=== PATIENT | male | born 1960 | race Caucasian/White ===

== ENCOUNTER 2017-02-14 21:05 | Inpatient (IN) | payer MEDICAID ==
[~2017-02-14] VITALS: Ht 195.6 cm; Wt 152.3 kg
[2017-02-14] MEDS ORDERED: NITROGLYCERIN 2% 1 GM OINT PKT TD STA (21:14)
[2017-02-14 21:26] LABS: ADD SCAN DIFF NO
[2017-02-14 21:29] LABS: ABNORMAL IP MESSAGE 1; BASOPHILS % 0.2 % (0.0-2.0); EOSINOPHILS # 0.1 10^3/ul (0.0-0.5); EOSINOPHILS % 1.4 % (0.0-7.0); HEMOGLOBIN 14.7 g/dl (14.0-18.0); LYMPHOCYTES % 22.3 % (15.0-51.0); MEAN CORPUSCULAR HEMOGLOBIN 30.6 pg (29.0-33.0); MEAN CORPUSCULAR HGB CONC 32.7 g/dl (32.0-37.0); MEAN CORPUSCULAR VOLUME 93.6 fl (82.0-101.0); MEAN PLATELET VOLUME 13.3 fl (7.4-10.4); MONOCYTE # 0.7 10^3/ul (0.3-0.9); MONOCYTES % 8.4 % (0.0-11.0); NEUTROPHILS % 67.4 % (39.0-77.0); PLATELET COUNT 159 10^3/UL (140-415); RED BLOOD COUNT 4.81 10^6/ul (4.70-6.10); RED CELL DISTRIBUTION WIDTH 12.8 % (11.5-14.5); WHITE BLOOD COUNT 8.8 10^3/ul (4.8-10.8)
[2017-02-14] MEDS ORDERED: FUROSEMIDE 40 MG INJ IV ONE (21:30)
[2017-02-14] MEDS ORDERED: ACETAMINOPHEN 500 MG TAB PO STA (21:32)
[2017-02-14 21:48] LABS: INR 1.1; PROTIME 14.2 Sec (12.2-14.2); PT RATIO 1.1
--- NOTE | 2017-02-14 21:48 | RADRPT ---
PROCEDURE: XR Chest. CLINICAL INDICATION: Chest pain. Shortness of breath TECHNIQUE: Portable AP semi erect view of the chest was obtained. COMPARISON: None. FINDINGS: The cardiomediastinal silhouette is enlarged. The lungs are clear. There is no evidence for pleura l effusion, pneumothorax or pulmonary vascular congestion. The osseous structures are intact with n o evidence for acute abnormality. RPTAT:HJJR IMPRESSION: Cardiac silhouette enlargement without evidence for acute intrathoracic pathology. Physician Bhupendra Date Time Electronically viewed and signed by Physician Bhupendra on 02/14/2017 21:47 JR/
[2017-02-14 21:49] LABS: PARTIAL THROMBOPLASTIN TIME 32.2 Sec (25.0-35.0)
[2017-02-14 21:51] LABS: ALBUMIN 3.6 g/dl (3.3-4.9); ALBUMIN/GLOBULIN RATIO 1.38; BILIRUBIN,INDIRECT 0.4 mg/dl (0-1.1); BILIRUBIN,TOTAL 0.4 mg/dl (0.2-1.3); CALCIUM 8.9 mg/dl (8.4-10.2); CREATININE 0.61 mg/dl (0.61-1.24); POTASSIUM 4.1 mmol/L (3.5-5.1); TOTAL PROTEIN 6.2 g/dl (6.1-8.1)
[2017-02-14] MEDS ORDERED: DILTIAZEM 25 MG INJ IV ONE (22:00)
[2017-02-14 22:02] LABS: TROPONIN-I 0.019 ng/ml (0.00-0.12)
--- NOTE | 2017-02-14 22:30 | ERA ---
ER Documentation Chief Complaint Date/Time DATE: 02/14/17 TIME: 21:10 Chief Complaint RA89 SOB,CP,hx pulm edema,88% on 2 lpm via [place] HPI 56-year-old male with history of diabetes, hypertension, hyperlipidemia and heart disease presents to the ED via rescue ambulance complaining of a 3 day history of worsening shortness of breath and several hour history of increasing , sharp and pressure-like nonradiating chest pain. Nausea with one episode of nonbloody nonbilious emesis but no diaphoresis. Received aspirin, sublingual nitroglycerin and nebulized albuterol in route with some relief.Also complaining of a several day history of subjective fevers but denies cough or sputum production. No abdominal pain, nausea, vomiting, diarrhea or constipation. Leg swelling but no pain. No dysuria, polyuria or flank pain. ROS All systems reviewed and are negative except as per history of present illness. Allergies Allergies: Coded Allergies: No Known Allergy (Unverified , 02/14/17) PMhx/Soc Reviewed in chart. As per HPI. Hx Cardiac Disorders: Yes (A. Fib, HTN) Hx Miscellaneous Medical Probl: Yes (DM) Hx Alcohol Use: No Hx Substance Use: No Hx Tobacco Use: No Smoking Status: Never smoker FmHx No stroke or cancer Physical Exam Vitals Vital Signs Date Time Temp Pulse Resp B/P Pulse Ox O2 Delivery O2 Flow Rate FiO2 02/14/17 22:28 103 13 133/78 92 Nasal Cannula 5.0 02/14/17 21:53 154 37 136/78 97 Nasal Cannula 5.0 02/14/17 21:17 Nasal Cannula 5 02/14/17 21:11 102.8 144 23 130/87 95 Physical Exam Const: Alert, moderate distress Head: Atraumatic Eyes: Normal Conjunctiva ENT: Normal External Ears, Nose and Mouth. Neck: Full range of motion. Nontender. Resp: Breath sounds diminished at the bases otherwise clear without rales, rhonchi or wheezes Cardio: Tachycardic, irregular rate and rhythm, no murmurs Abd: Soft, obese non tender, non distended. Normal bowel sounds Skin: No petechiae or rashes Back: No midline or flank tenderness Ext: 2+ pitting edema bilateral lower external Neur: Awake and alert. No focal deficit observed Psych: Normal Mood and Affect Result Diagram: 02/15/17 0554 02/15/17 0554 Results 24 hrs Laboratory Tests Test 02/14/17 21:15 02/14/17 22:00 White Blood Count 8.810^3/ul Red Blood Count 4.8110^6/ul Hemoglobin 14.7g/dl Hematocrit 45.0% Mean Corpuscular Volume 93.6fl Mean Corpuscular Hemoglobin 30.6pg Mean Corpuscular Hemoglobin Concent 32.7g/dl Red Cell Distribution Width 12.8% Platelet Count 57640^3/UL Mean Platelet Volume 13.3fl Neutrophils % 67.4% Lymphocytes % 22.3% Monocytes % 8.4% Eosinophils % 1.4% Basophils % 0.2% Nucleated Red Blood Cells % 0.0/100WBC Neutrophils # 6.010^3/ul Lymphocytes # 2.010^3/ul Monocytes # 0.710^3/ul Eosinophils # 0.110^3/ul Basophils # 0.010^3/ul Nucleated Red Blood Cells # 0.010^3/ul Prothrombin Time 14.2Sec Prothrombin Time Ratio 1.1 INR International Normalized Ratio 1.10 Activated Partial Thromboplast Time 32.2Sec Sodium Level 132mmol/L Potassium Level 4.1mmol/L Chloride Level 91mmol/L Carbon Dioxide Level 28mmol/L Anion Gap 17 Blood Urea Nitrogen 14mg/dl Creatinine 0.61mg/dl Glucose Level 370mg/dl Lactic Acid Level 1.3mmol/L Calcium Level 8.9mg/dl Magnesium Level 1.4mg/dl Total Bilirubin 0.4mg/dl Direct Bilirubin 0.00mg/dl Indirect Bilirubin 0.4mg/dl Aspartate Amino Transf (AST/SGOT) 54IU/L Alanine Aminotransferase (ALT/SGPT) 75IU/L Alkaline Phosphatase 145IU/L Troponin I 0.019ng/ml B-Type Natriuretic Peptide 1380PG/ML Total Protein 6.2g/dl Albumin 3.6g/dl Globulin 2.60g/dl Albumin/Globulin Ratio 1.38 Urine Color STRAW Urine Clarity CLEAR Urine pH 6.0 Urine Specific [place] 1.005 Urine Ketones NEGATIVEmg/dL Urine Nitrite NEGATIVEmg/dL Urine Bilirubin NEGATIVEmg/dL Urine Urobilinogen NEGATIVEmg/dL Urine Leukocyte Esterase NEGATIVELeu/ul Urine Hemoglobin NEGATIVEmg/dL Urine Glucose 3+mg/dL Urine Total Protein NEGATIVEmg/dl Current Medications Medications (Trade) Dose Ordered Sig/Steven Route PRN Reason Start Time Stop Time Status Last Admin Dose Admin Nitroglycerin (Nitroglycerin 2% Oint) 1 inch ONCE STAT TD 02/14/17 21:14 02/14/17 21:16 DC 02/14/17 21:23 Furosemide (Lasix) 40 mg ONCE ONCE IV 02/14/17 21:30 02/14/17 21:31 DC 02/14/17 21:27 Acetaminophen (Tylenol Tab) 1,000 mg ONCE STAT PO 02/14/17 21:32 02/14/17 21:33 DC 02/14/17 21:48 Diltiazem HCl (Cardizem Iv) 20 mg ONCE ONCE IV 02/14/17 22:00 02/14/17 22:03 DC 02/14/17 22:11 EKG: TIME: 21:30. Atrial fibrillation with RVR. Occasional premature aberrantly conducted complexes. Right bundle branch block. No acute ST segment elevation or depression. EP Interpretation: Abnormal EKG. IMAGING: PROCEDURE: XR Chest. CLINICAL INDICATION: Chest pain. Shortness of breath TECHNIQUE: Portable AP semi erect view of the chest was obtained. COMPARISON: None. FINDINGS: The cardiomediastinal silhouette is enlarged. The lungs are clear. There is no evidence for pleural effusion, pneumothorax or pulmonary vascular congestion. The osseous structures are intact with no evidence for acute abnormality. RPTAT:HJJR IMPRESSION: Cardiac silhouette enlargement without evidence for acute intrathoracic pathology. Physician Bhupendra Date Time Electronically viewed and signed by Physician Bhupendra on 02/14/2017 21:47 JR/ Procedures/MDM DOCUMENTS REVIEWED: ED nurse, no prior REEXAMINATION/REEVALUATION: Time:22:15. Post Cardizem still in atrial fibrillation with ventricular rate of 98. Chest pain decreased. [employer] DECISION MAKIN-year-old male with history of diabetes, hypertension , hyperlipidemia and heart disease presents to the ED via rescue ambulance complaining of a 3 day history of worsening shortness of breath and several hour history of increasing, sharp and pressure-like nonradiating chest pain. Patient presents with atrial fibrillation with rapid ventricular response rate control achieved with diltiazem bolus and continuous infusion. Chest pain but no acute ischemic EKG changes or elevated troponin. Acute febrile illness with multiple SIRS criteria but no source of infection identified. Chest x-ray is negative for effusions or infiltrates. Abdominal exam is benign without rebound , guarding or signs of peritonitis. No elevated lactate or criteria for severe sepsis or septic shock. Hyperglycemia but no DKA or HONK. Patient will be admitted to telemetry for further evaluation and management. Counseled patient regarding diagnosis, diagnostic results and plan for admission. Critical Care Note: Treatments/Evaluations: Close monitoring and treatment of unstable vital signs, cardiorespiratory, and neurologic status, while maintaining tight balance of fluid, respiratory, and cardiac interventions. This time includes discussing the case with the patient and the patient's family. This time does not include all procedures stated elsewhere in this record. This time also includes reviewing old records, labs and radiological studies. This time includes examining and re-examining the patient. Additionally, this time also includes arranging care with admitting and consulting physicians. Total critical care time not including other separately reportable procedures: 35 minutes. CALLS/CONSULTS: Time 22:35, Dr. Mayen, Recommends admission to telemetry. PATIENT CARE TRANSITIONED: Time: 22:35 Dr. Mayen. Departure Diagnosis: Primary Impression: Acute chest pain Additional Impressions: Atrial fibrillation with rapid ventricular response Fever Qualified Code: R50.9 - Fever, unspecified fever cause Diabetes mellitus type 2 in obese Hypertension Qualified Code: I10 - Essential hypertension Condition: Serious POLO HASKINS MD Feb 14, 2017 22:30
[2017-02-14 22:52] LABS: ADD UMIC NO; UR ASCORBIC ACID NEGATIVE (NEGATIVE); UR BILIRUBIN (Dip) NEGATIVE (NEGATIVE); UR BLOOD (Dip) NEGATIVE (NEGATIVE); UR CLARITY CLEAR (CLEAR); UR COLOR STRAW (YELLOW); UR GLUCOSE (Dip) 3+ mg/dL (NEGATIVE); UR KETONES (Dip) NEGATIVE (NEGATIVE); UR LEUKOCYTE ESTERASE (Dip) NEGATIVE Leu/ul (NEGATIVE); UR NITRITE (Dip) NEGATIVE (NEGATIVE); UR SPECIFIC GRAVITY (Dip) 1.005 (1.003-1.030); UR TOTAL PROTEIN (Dip) NEGATIVE (NEGATIVE); UR UROBILINOGEN (Dip) NEGATIVE (NEGATIVE)
[2017-02-14] MEDS ORDERED: ONDANSETRON 4 MG INJ IV PRN (23:00)
[2017-02-14] MEDS ORDERED: ACETAMINOPHEN 325 MG TAB PO PRN (23:00)
[2017-02-14] MEDS ORDERED: IOHEXOL 100 ML ONE (23:03)
[2017-02-14] MEDS ORDERED: IOHEXOL 350MG/ML 50 ML BTL ONE (23:03)
[2017-02-14] MEDS ORDERED: SOD CHLORIDE 0.9% 100 ML ONE (23:03)
[2017-02-14] MEDS: DILTIAZEM-D5W 125MG/125ML DRIP 125 ML IV SCH (23:04)
[2017-02-15] VITALS (10 sets, daily range): BP systolic 115–160; BP diastolic 55–82; PULSE 96–117; RESP 18–20; Ht 195.6 cm; Wt 152.3 kg
--- NOTE | 2017-02-15 00:20 | RADRPT ---
PROCEDURE: CT angiogram of the chest with contrast. CLINICAL INDICATION: Chest pain and shortness of breath. TECHNIQUE: CT angiogram of the chest was obtained using a multi-detector high-resolution CT. Con tiguous axial images were obtained during the dynamic injection of 140 cc of Omnipaque 350 intraveno us contrast. Coronal and sagittal reformatted images were obtained. 3-D reformatted images were al so obtained. Images were reviewed on a PACS workstation. One or more of the following dose reduction techniques were used: - Automated exposure control. - Adjustment of the mA and/or kV according to patient size. - Use of iterative reconstruction technique. Exam CTD/vol = 24.47 mGy. Total exam DLP = 1032.24 mGy-cm. COMPARISON: None. FINDINGS: The main pulmonary artery followed to the segmental divisions are well opacified. There is no filli ng defect or evidence of pulmonary embolism. The heart is moderately enlarged with a small to moder ate pericardial effusion. The aorta is of normal course and caliber without evidence of aneurysm or dissection. There is no evidence of chest wall mass. The visualized thyroid is unremarkable. There are no enla rged axillary lymph nodes. There are no enlarged mediastinal or hilar lymph nodes by CT criteria. T here is bilateral peribronchial thickening. There are mild scattered air space opacities within the right upper and lower lobes. There is no pleural effusion. The central tracheobronchial tree is w ithin normal limits. Limited evaluation of the upper abdomen demonstrates a large ventral hernia containing loops of ventura l. IMPRESSION: No evidence of pulmonary embolism or aortic dissection. Moderate cardiomegaly with small to moderate pericardial effusion. Bilateral peribronchial thickening with mild scattered air space opacities within the right upper an d lower lobes. Large ventral abdominal wall hernia containing multiple loops of bowel. Please refer to CT abdomen and pelvis done same day for further details. .Lele Zuniga MD, MD Date Time Electronically viewed and signed by .Lele Zuniga MD, MD on 02/15/2017 00:19 .T/
--- NOTE | 2017-02-15 00:26 | RADRPT ---
PROCEDURE: CT abdomen and pelvis without intravenous contrast. CLINICAL INDICATION: Pain. TECHNIQUE: CT of the abdomen/pelvis was performed utilizing axial images with reconstructions in s agittal and coronal planes. The administered radiation dose is CTDI 29 mGy, DLP 1823 mGy-cm. COMPARISON: No pertinent prior examinations were submitted for comparison. FINDINGS: Visualized Chest: Some ground-glass nodular opacities are noted within the lung bases in a peribronc hial distribution. There is moderate cardiomegaly with small to moderate pericardial effusion. José Miguel e coronary artery calcifications are noted. Abdomen: The examination is limited by body habitus. Parts of the anterior abdomen are not included in the f ield of view. The spleen, pancreas, gallbladder,and adrenal glands are unremarkable. The liver is diffusely dec reased in attenuation, compatible with hepatic steatosis. The kidneys are without hydronephrosis. No definite urinary calculi are seen. There is a large ventral abdominal hernia which contains most of the small bowel and parts of the la rge bowel. The anterior aspect of the hernia is not visualized. There is no evidence of bowel obst ruction. There is no evidence of intra-abdominal adenopathy or free fluid. Pelvis: There is no evidence of pelvic adenopathy or free fluid. The prostate and bladder are unremarkable. Osseous structures: Unremarkable. IMPRESSION: Patchy peribronchial nodular opacities in the lung bases likely due to pneumonia. Moderate cardiomegaly with small to moderate pericardial effusion. Hepatic steatosis. Large ventral abdominal hernia containing most of the bowel. No evidence of bowel obstruction. RPTAT: HIKT .Curly Huff MD, MD Date Time Electronically viewed and signed by .Curly Huff MD, on 02/15/2017 00:26 .T/
[2017-02-15] MEDS ORDERED: NITROGLYCERIN (SL) 0.4 MG TAB SL PRN (01:00)
[2017-02-15] MEDS ORDERED: DOCUSATE SODIUM 100 MG CAP PO PRN (01:00)
[2017-02-15] MEDS ORDERED: ONDANSETRON 4 MG INJ IV PRN (01:00)
[2017-02-15] MEDS ORDERED: BISACODYL (EC) 5 MG TAB PO PRN (01:00)
[2017-02-15] MEDS ORDERED: ACETAMINOPHEN 325 MG TAB PO PRN (01:00)
[2017-02-15] MEDS ORDERED: MAGNESIUM SULFATE 2 GM/50 ML 50 ML IVPB ONE ×2 (01:00→04:38)
[2017-02-15] MEDS ORDERED: NACL 0.9% 3 ML SYG IV SCH (01:00)
--- NOTE | 2017-02-15 01:06 | HP ---
Date/Time of Note Date/Time of Note DATE: 02/15/17 TIME: 00:41 Assessment/Plan VTE Prophylaxis VTE Prophylaxis Intervention: SCD's Lines/Catheters IV [facility] Saline Lock Assessment/Plan Chief Complaint/Hosp Course This is a 56-year-old male being admitted to the telemetry floor for: #1 chest pain: ACS versus A. fib with RVR versus pneumonia. Patient has a significant past medical history we will trend cardiac markers. Will check a 2D echo. As needed nitro. #2 A. fib with RVR: Currently rate controlled on Cardizem drip. Patient not on any anticoagulation at home except for aspirin. Patient states that he was told in the past that he should not be taking anticoagulation secondary to his hemorrhage that resulted in him needing abdominal surgery. Will defer anticoagulation to cardiology. #3 Fever: Patient came in with normal white blood cell count. However his fever and cough do not fit the clinical picture though his chest x-ray is normal and I have suspicion for underlying pneumonia therefore I will order a CT of the chest to further evaluate at the current time I will order a CT of the chest to further evaluate. #4 diabetes mellitus: We will check a hemoglobin A1c level. Put patient on insulin sliding scale. #5 hypertension: Patient currently does not recall any of his medications. We will start him on a low-dose JERRELL inhibitor at this time. #6 History of CHF: BNP of 1300 however his x-ray does not show any vascular congestion though he does have lower extremity edema, which also could be due to possibly underlying sleep apnea. The current time will order echocardiogram to evaluate and consult cardiology. #7 DVT and GI prophylaxis: SCDs, Protonix Further treatment strategy as per the clinical course Problems: HPI/ROS Admit Date/Time Admit Date/Time Hx of Present Illness Chief complaint: Shortness of breath 3 days, swelling in the leg 5 days This is a 56-year-old male with history of diabetes, hypertension, hyperlipidemia and heart disease presents to the ED via rescue ambulance complaining of a 3 day history of worsening shortness of breath and several hour history of increasing, sharp and pressure-like nonradiating chest pain. Nausea with one episode of nonbloody nonbilious emesis but no diaphoresis. Received aspirin, sublingual nitroglycerin and nebulized albuterol in route with some relief.Also complaining of a several day history of subjective fevers and cough but denies sputum production. No abdominal pain, nausea, vomiting, diarrhea or constipation. Leg swelling but no pain. No dysuria, polyuria or flank pain. Allergies: NKDA Medications: Patient does not know his medications. Patient states that he was not put on any anticoagulation for his A. fib secondary to his previous surgery where he did well had a hemorrhage ROS Const: As per HPI Eyes : No pain discharge or redness or change in visual acuity ENT: No pain, sore throat, congestion, congestion, dysphagia or discharge Respiratory: As per HPI Cardiovascular: As per HPI GI : no change in appetite, abdominal pain, nausea, vomiting, diarrhea, constipation, or change in the color his stool Genitourinary: No dysuria, hematuria, flank pain , discharge or CVA tenderness Musculoskeletal: No joint pain, back pain, neck pain, restricted range of motion in neck or joints Skin: No rash, bruising or hives Neuro: No headache, dizziness, syncope, seizure, focal weakness Endocrine: No polyuria, polydipsia, temperature intolerance Psych: No hallucination, depression, anxiety or suicidal ideation PMH/Family/Social Past Medical History Diabetes mellitus, hypertension, CHF, atrial fibrillation Past Surgical History Abdominal surgery for hemorrhage? Family History Significant Family History: diabetes Social History Alcohol Use: none Smoking Status: Never smoker Drug Use: none Exam/Review of Systems Vital Signs Vitals Vital Signs Date Time Temp Pulse Resp B/P Pulse Ox O2 Delivery O2 Flow Rate FiO2 02/14/17 23:35 127 21 128/92 95 Nasal Cannula 4.0 02/14/17 21:11 102.8 Intake and Output 02/14/17 02/14/17 02/15/17 15:00 23:00 07:00 Output Total 675 ml Balance -675 ml Exam Exam General: Patient is a morbidly obese male in no acute distress HEENT: Atraumatic, normocephalic. The pupils are equal, round and reactive. Extraocular motor are intact Neck: Supple with full range of motion. No rigidity or meningismus Chest: Nontender Lungs: Coarse breath sounds at the bases bilaterally Heart: Normal S1-S2, Regular rhythm and rate. Abdomen: Soft, distended, nontender, surgical scar present. Normal bowel sounds Extremities: 2+ pitting edema of the bilateral lower extremities Neurologic: Normal mental status, speech normal, cranial nerves II through XII are intact, motor and sensory are intact, no focal weakness Labs Result Diagram: 02/14/17211402/14/172114 Medications Medications Current Medications Diltiazem HCl (Cardizem-D5W 125 Mg/125 ml Drip) 125 ml @ 10 mls/hr [id number] IV Last administered on 02/14/17t 23:04; Admin Dose 10 MLS/HR; Start 02/14/17 at 23: 00 FANNY VANG Feb 15, 2017 00:51
[2017-02-15] MEDS: CEFTRIAXONE 2 GM/50 ML (PMX) 50 ML IVPB SCH (02:11)
[2017-02-15] MEDS: DOXYCYCLINE 100 MG in SOD CHLORIDE 0.9% 250 ML IVPB SCH ×3 (02:50→21:07)
[2017-02-15] MEDS ORDERED: DEXTROSE 50% 50 ML SYRINGE IV PRN ×2 (03:00)
[2017-02-15] MEDS ORDERED: GLUCOSE GEL 15 GRAM TUBE PO PRN ×2 (03:00)
[2017-02-15] MEDS ORDERED: GLUCOSE GEL 15 GRAM TUBE BUCCAL PRN (03:00)
[2017-02-15] MEDS ORDERED: GLUCAGON 1 MG INJ IM PRN (03:00)
[2017-02-15 04:03] LABS: TROPONIN-I 0.031 ng/ml (0.00-0.12)
[2017-02-15 04:05] LABS: CK-MB 1.2 ng/ml (0.0-2.4)
[2017-02-15] MEDS: PANTOPRAZOLE 40 MG INJ IV SCH (05:16)
[2017-02-15] MEDS: FUROSEMIDE 40 MG INJ IV SCH (05:17)
[2017-02-15 06:43] LABS: ADD SCAN DIFF NO
[2017-02-15 06:54] LABS: ABNORMAL IP MESSAGE 1; BASOPHILS % 0.4 % (0.0-2.0); EOSINOPHILS # 0.1 10^3/ul (0.0-0.5); EOSINOPHILS % 1.1 % (0.0-7.0); HEMATOCRIT 47.8 % (42.0-52.0); HEMOGLOBIN 15.6 g/dl (14.0-18.0); LYMPHOCYTES # 1.4 10^3/ul (0.8-2.9); LYMPHOCYTES % 19.6 % (15.0-51.0); MEAN CORPUSCULAR HEMOGLOBIN 30.8 pg (29.0-33.0); MEAN CORPUSCULAR HGB CONC 32.6 g/dl (32.0-37.0); MEAN CORPUSCULAR VOLUME 94.5 fl (82.0-101.0); MEAN PLATELET VOLUME 13.2 fl (7.4-10.4); MONOCYTE # 0.5 10^3/ul (0.3-0.9); MONOCYTES % 7.7 % (0.0-11.0); NEUTROPHILS % 70.8 % (39.0-77.0); PLATELET COUNT 151 10^3/UL (140-415); RED BLOOD COUNT 5.06 10^6/ul (4.70-6.10); RED CELL DISTRIBUTION WIDTH 12.6 % (11.5-14.5); WHITE BLOOD COUNT 7.1 10^3/ul (4.8-10.8)
[2017-02-15 07:27] LABS: ALBUMIN 3.6 g/dl (3.3-4.9); ALBUMIN/GLOBULIN RATIO 1.33; BILIRUBIN,INDIRECT 0.4 mg/dl (0-1.1); BILIRUBIN,TOTAL 0.4 mg/dl (0.2-1.3); CALCIUM 8.7 mg/dl (8.4-10.2); CHOL/HDL RATIO 4.3 RATIO; CREATININE 0.63 mg/dl (0.61-1.24); MAGNESIUM 1.5 mg/dl (1.7-2.5); POTASSIUM 3.5 mmol/L (3.5-5.1); TOTAL PROTEIN 6.3 g/dl (6.1-8.1)
[2017-02-15 07:49] LABS: THYROID STIMULATING HORMONE 0.675 MIU/L (0.465-4.680)
[2017-02-15] MEDS: LISINOPRIL 5 MG TAB PO SCH (08:25)
[2017-02-15] MEDS: INSULIN ASPART [NOVOLOG] 3 ML PEN SC SCH ×5 (08:31→21:21)
[2017-02-15] MEDS: DILTIAZEM-D5W 125MG/125ML DRIP 125 ML IV SCH ×2 (09:22→11:30)
[2017-02-15] MEDS: morphine 4 MG/ML VIAL IV PRN ×2 (10:38→23:41)
[2017-02-15 10:42] LABS: TROPONIN-I 0.013 ng/ml (0.00-0.12)
[2017-02-15 10:44] LABS: CK-MB 1.22 ng/ml (0.0-2.4)
--- NOTE | 2017-02-15 12:38 | RADRPT ---
Echocardiogram Report Patient Name: CHEMA LANTIGUA Gender: Male Date: 1960 Study Date: 15-Feb-2017 Payer Specialist: Kari Kumar DARIUS Location: [facility] [place][note 3] Ref. Physician: FANNY VANG Quality: Technically Difficult Study Procedures: Transthoracic echocardiogram with complete 2D, M-Mode, and doppler examination. Indications: Atrial Fibrillation w/rvr. Chest Pain. 2D/M Mode Doppler Measurement Value Normal Ranges Measurement Value Normal Ranges LVIDd 2D 4.9 3.5 - 5.6 cm AV Peak Michael 1.7 m/sec LVIDs 2D 3.0 2.1 - 4.1 cm AV Peak PG 12.0 mmHg FS 2D 40.4 % LVOT Peak Michael 1.3 m/sec LVPWd 2D 1.3 0.6 - 1.1 cm LVOT Peak PG 7.0 mmHg IVSd 2D 1.3 0.6 - 1.1 cm TR Peak Michael 2.1 m/sec IVS/LVPW 2D 1.0 TR Peak PG 18.0 mmHg AoR Diam 2D 3.2 2.0 - 3.7 cm RVSP 26.0 mmHg LA/Ao 2D 1 0 - 1 EDV 2D 121.0 cm3 ESV 2D 25.7 cm3 LA Dimen 2D 4.4 2.3 - 4.0 cm Findings Left Ventricle: Overall, normal left ventricular systolic function. Not all segments visualized. Normal left ventricular cavity size. Mild concentric left ventricular hypertrophy. Ejection fraction is visually estimated at 55 %. Abnormal Diastolic Function. Right Ventricle: Normal right ventricular size. Normal right ventricular systolic function. Left Atrium: There is mild enlargement of left atrium. Right Atrium: There is mild enlargement of right atrium. Mitral Valve: Mild mitral leaflet calcification. Mild mitral annular calcification. Trace mitral regurgitation. Aortic Valve: No significant aortic stenosis or insufficiency. Aortic cusps appear mildly calcified. Tricuspid Valve: Normal appearance of the tricuspid valve. Estimated peak PA systolic pressure 26 mmHg. There is trace tricuspid regurgitation. Pulmonic Valve: Pulmonic valve not well visualized. Pericardium: Small pericardial effusion. Aorta: Normal aortic root. IVC: Dilated IVC with respiratory collapse consistent with elevated right atrial pressure. Conclusions Overall, normal left ventricular systolic function. Not all segments visualized. Normal left ventricular cavity size. Mild concentric left ventricular hypertrophy. Ejection fraction is visually estimated at 55 %. Abnormal Diastolic Function. Normal right ventricular size. Normal right ventricular systolic function. There is mild enlargement of left atrium. There is mild enlargement of right atrium. No significant valvular stenosis or regurgitation seen. Small pericardial effusion. Electronically Signed By: J Carlos Bonner 15-Feb-2017 12:38:25 -0700 Patient Name: CHEMA LANTIGUA Study Date: 15-Feb-2017 [id number]
[2017-02-15] MEDS ORDERED: POTASSIUM CHLORIDE (SR) 20 MEQ TAB PO STA (12:47)
[2017-02-15] MEDS ORDERED: DILTIAZEM 60 MG TAB PO ONE (12:47)
--- NOTE | 2017-02-15 12:49 | CONS ---
Date/Time of Note Date/Time of Note DATE: 02/15/17 TIME: 12:40 Assessment/Plan Assessment/Plan Additional Assessment/Plan Likely pneumonia Acute decompensated diastolic congestive heart failure Atrial fibrillation with rapid ventricular rates, improved, not on anticoagulation secondary to history of GI bleed Preserved ejection fraction Sepsis Hypertension Small pericardial effusion -Patient with symptoms of fevers and chills, cough and CT chest evidence of pneumonia. Patient's symptoms have improved with antibiotics. Also evidence of mild decompensated congestive heart failure. Would continue Lasix at the current time as blood pressure renal function permits. Heart rate trend has improved but still on IV Cardizem. Will start p.o. Cardizem and transition off the IV. Maintain potassium above 4.0 and magnesium above 2.0. In discussion with patient, he had a history of GI bleed on anticoagulation and he was told not to take anticoagulation in the future. Consultation Date/Type/Reason Admit Date/Time Type of Consultation: cv Reason for Consultation Atrial fibrillation Hx of Present Illness This is a 56-year-old male with past medical history of hypertension, atrial fibrillation who presents with 3 days history of fevers and chills, shortness of breath and fatigue. Symptoms progressively worsened and he came to the emergency room for evaluation and care. He is also complaining of cough which has been occasionally productive. With coughing, he developed sharp chest discomfort. He denies any palpitations or dizziness. He was given nitro ointment with no significant change in his chest discomfort but he has developed a headache since. Since his admission and being giving multiple medications including antibiotics, he is feeling much better. Currently denies any shortness of breath but complains of fatigue. His chest discomfort is only present with coughing. Shortness of breath is slightly better. 12 point review of systems was performed with all pertinent positives and negatives mentioned above and all else is negative Past Medical History Atrial fibrillation GI bleed Medical History: congestive heart failure, diabetes, hypertension Past Surgical History GI procedure Family History Significant Family History: no pertinent family hx Social History Alcohol Use: none Smoking Status: Never smoker Drug Use: none Exam/Review of Systems Vital Signs Vitals Vital Signs Date Time Temp Pulse Resp B/P Pulse Ox O2 Delivery O2 Flow Rate FiO2 02/15/17 12:07 96 02/15/17 11:12 98.6 18 115/74 91 02/15/17 03:40 Nasal Cannula 2.0 Intake and Output 02/14/17 02/14/17 02/15/17 14:59 22:59 06:59 Output Total 675 ml 550 ml Balance -675 ml -550 ml Exam Alert and oriented but appears tired and following asleep multiple times during history taking and examination, no dyspnea, no apparent distress Constitutional: obese Head: normocephalic Neck: supple Respiratory: other (Coarse breath sounds bilaterally with scattered mild crackles, no wheezing) Cardiovascular: irregular rhythm, other (S1-S2 heard) Gastrointestinal: bowel sounds, non-tender, other (No guarding), soft Extremities: edema Results Result Diagram: 02/15/17 0554 02/15/17 0554 Results 24 hrs Laboratory Tests Test 02/14/17 21:15 02/14/17 22:00 02/15/17 00:35 02/15/17 02:21 White Blood Count 8.8 Red Blood Count 4.81 Hemoglobin 14.7 Hematocrit 45.0 Mean Corpuscular Volume 93.6 Mean Corpuscular Hemoglobin 30.6 Mean Corpuscular Hemoglobin Concent 32.7 Red Cell Distribution Width 12.8 Platelet Count 159 Mean Platelet Volume 13.3 H Neutrophils % 67.4 Lymphocytes % 22.3 Monocytes % 8.4 Eosinophils % 1.4 Basophils % 0.2 Nucleated Red Blood Cells % 0.0 Neutrophils # 6.0 Lymphocytes # 2.0 Monocytes # 0.7 Eosinophils # 0.1 Basophils # 0.0 Nucleated Red Blood Cells # 0.0 Prothrombin Time 14.2 Prothrombin Time Ratio 1.1 INR International Normalized Ratio 1.10 Activated Partial Thromboplast Time 32.2 Sodium Level 132 L Potassium Level 4.1 Chloride Level 91 L Carbon Dioxide Level 28 Anion Gap 17 H Blood Urea Nitrogen 14 Creatinine 0.61 Glucose Level 370 H Lactic Acid Level 1.3 1.1 1.2 Calcium Level 8.9 Magnesium Level 1.4 L Total Bilirubin 0.4 Direct Bilirubin 0.00 Indirect Bilirubin 0.4 Aspartate Amino Transf (AST/SGOT) 54 H Alanine Aminotransferase (ALT/SGPT) 75 H Alkaline Phosphatase 145 H Troponin I 0.019 0.031 B-Type Natriuretic Peptide 1380 H Total Protein 6.2 Albumin 3.6 Globulin 2.60 Albumin/Globulin Ratio 1.38 Urine Color STRAW Urine Clarity CLEAR Urine pH 6.0 Urine Specific Wilber 1.005 Urine Ketones NEGATIVE Urine Nitrite NEGATIVE Urine Bilirubin NEGATIVE Urine Urobilinogen NEGATIVE Urine Leukocyte Esterase NEGATIVE Urine Hemoglobin NEGATIVE Urine Glucose 3+ H Urine Total Protein NEGATIVE Creatine Kinase 121 Creatine Kinase Index 1.0 Creatinine Kinase MB (Mass) 1.20 Test 02/15/17 05:54 02/15/17 08:22 02/15/17 09:30 White Blood Count 7.1 Red Blood Count 5.06 Hemoglobin 15.6 Hematocrit 47.8 Mean Corpuscular Volume 94.5 Mean Corpuscular Hemoglobin 30.8 Mean Corpuscular Hemoglobin Concent 32.6 Red Cell Distribution Width 12.6 Platelet Count 151 Mean Platelet Volume 13.2 H Neutrophils % 70.8 Lymphocytes % 19.6 Monocytes % 7.7 Eosinophils % 1.1 Basophils % 0.4 Nucleated Red Blood Cells % 0.0 Neutrophils # 5.0 Lymphocytes # 1.4 Monocytes # 0.5 Eosinophils # 0.1 Basophils # 0.0 Nucleated Red Blood Cells # 0.0 Sodium Level 136 Potassium Level 3.5 Chloride Level 91 L Carbon Dioxide Level 29 Anion Gap 20 H Blood Urea Nitrogen 15 Creatinine 0.63 Glucose Level 327 H Calcium Level 8.7 Magnesium Level 1.5 L Total Bilirubin 0.4 Direct Bilirubin 0.00 Indirect Bilirubin 0.4 Aspartate Amino Transf (AST/SGOT) 41 Alanine Aminotransferase (ALT/SGPT) 70 H Alkaline Phosphatase 138 H Total Protein 6.3 Albumin 3.6 Globulin 2.70 Albumin/Globulin Ratio 1.33 Triglycerides Level 109 Cholesterol Level 87 L LDL Cholesterol, Calculated 45 HDL Cholesterol 20 L Cholesterol/HDL Ratio 4.3 Thyroid Stimulating Hormone (TSH) 0.675 Bedside Glucose 313 H Creatine Kinase 94 Creatine Kinase Index 1.3 Creatinine Kinase MB (Mass) 1.22 Troponin I 0.013 Medications Medications Current Medications Diltiazem HCl (Cardizem-D5W 125 Mg/125 ml Drip) 125 ml @ 10 mls/hr [id number] IV Last administered on 02/15/17t 09:22; Admin Dose 10 MLS/HR; Start 02/14/17 at 23: 00 Ondansetron HCl (Zofran Inj) 4 mg Q6H PRN IV NAUSEA AND/OR VOMITING; Start 02/15 at 01:00 Nitroglycerin (Nitroglycerin (Sl Tab) 0.4 Mg) 1 tab Q5M PRN SL CHEST PAIN; Start 02/15/17 at 01:00 Acetaminophen (Tylenol Tab) 650 mg Q6H PRN PO PAIN LEVEL 1-3 OR FEVER; Start at 01:00 Docusate Sodium (Colace) 100 mg Q12H PRN PO CONSTIPATION; Start 02/15/17 at 01: 00 Bisacodyl (Dulcolax) 5 mg DAILY PRN PO CONSTIPATION; Start 02/15/17 at 01:00 Pantoprazole (Protonix Iv) 40 mg DAILY@06 IV Last administered on 02/15/17 05: 16; Admin Dose 40 MG; Start 02/15/17 at 06:00 Furosemide (Lasix) 40 mg DAILY@06 IV Last administered on 02/15/17 05:17; Admin Dose 40 MG; Start 02/15/17 at 06:00 Lisinopril 5 mg 5 mg DAILY PO Last administered on 02/15/17 08:25; Admin Dose 5 MG; Start 02/15/17 at 09:00 Ceftriaxone Sodium 50 ml @ 100 mls/hr Q24H IVPB Last administered on 02/15/17 02:11; Admin Dose 100 MLS/HR; Start 02/15/17 at 02:00 Doxycycline Hyclate/Sodium Chloride (Vibramycin/NS) 250 ml @ 250 mls/hr Q12 IVPB Last administered on 02/15/17 10:30; Admin Dose 250 MLS/HR; Start 02/15/17 at 01:00 Diagnostic Test (Pha) (Accu-Chek) 1 ea 02 XX ; Start 02/16/17 at 02:00 Miscellaneous Information 1 ea NOTE XX ; Start 02/15/17 at 03:00 Glucose (Glutose) 15 gm Q15M PRN PO DECREASED GLUCOSE; Start 02/15/17 at 03:00 Glucose (Glutose) 22.5 gm Q15M PRN PO DECREASED GLUCOSE; Start 02/15/17 at 03:00 Dextrose (D50w Syringe) 25 ml Q15M PRN IV DECREASED GLUCOSE; Start 02/15/17 at 03:00 Dextrose (D50w Syringe) 50 ml Q15M PRN IV DECREASED GLUCOSE; Start 02/15/17 at 03:00 Glucagon (Glucagen) 1 mg Q15M PRN IM DECREASED GLUCOSE; Start 02/15/17 at 03:00 Glucose (Glutose) 15 gm Q15M PRN BUCCAL DECREASED GLUCOSE; Start 02/15/17 at 03: 00 Morphine Sulfate (morphine) 2 mg Q3H PRN IV PAIN Last administered on 02/15/17t 10:38; Admin Dose 2 MG; Start 02/15/17 at 10:30 Procedures Procedures ECG done yesterday demonstrates atrial fibrillation and 31 bpm, right bundle branch block with QRS 150 ms, nonspecific ST-T abnormalities J Carlos Bonner DO Feb 15, 2017 12:49
[2017-02-15] MEDS: DILTIAZEM 60 MG TAB PO SCH ×2 (18:21→23:47)
[2017-02-15] MEDS ORDERED: INSULIN GLARGINE [LANtus] 3 ML PEN SC SCH (20:00)
[2017-02-15] MEDS: MAGNESIUM OXIDE 400 MG TAB PO SCH (21:07)
--- NOTE | 2017-02-15 23:14 | RADRPT ---
PROCEDURE: US Abdomen (right upper quadrant). CLINICAL INDICATION: Abnormal liver function tests. TECHNIQUE: Multiple real-time longitudinal and transverse images of the right upper quadrant of th e abdomen were acquired utilizing a curved array transducer. Images were reviewed on a high-resoluti on PACS workstation. COMPARISON: CT scan of the abdomen and pelvis done earlier the same day. FINDINGS: The liver is enlarged and diffusely increased in echogenicity consistent with fatty metamorphosis. There is no focal hepatic lesion. The gallbladder is normal with no stones or wall thickening. There is no pericholecystic fluid martha ection. The bile ducts are normal with the common bile duct measuring 5.3 mm in diameter. The pancreas is not visualized due to overlying bowel gas. No free fluid is present. The right kidney measures 13.2 cm. There is normal echogenicity of the right kidney. There is no right renal mass or hydronephrosis. A nonobstructing 0.4 cm calculus is present in the lower right kidney. IMPRESSION: 1. Hepatomegaly. 2. Fatty metamorphosis of the liver. 3. Pancreas not visualized. 4. Nonobstructing 0.4 cm calculus in the lower right kidney. 5. Otherwise unremarkable study. RPTAT: QQ .Kong Jiang MD, Date Time Electronically viewed and signed by .Kong Jiang MD, on 02/15/2017 23:13 .R/
[2017-02-16] VITALS (10 sets, daily range): BP systolic 117–145; BP diastolic 58–86; PULSE 90–127; RESP 16–20
[2017-02-16] MEDS: ACCU-CHEK XX SCH (02:24)
[2017-02-16] MEDS: CEFTRIAXONE 2 GM/50 ML (PMX) 50 ML IVPB SCH (02:24)
[2017-02-16] MEDS: PANTOPRAZOLE 40 MG INJ IV SCH (05:25)
[2017-02-16] MEDS: DILTIAZEM 60 MG TAB PO SCH ×2 (05:30→12:19)
[2017-02-16] MEDS: FUROSEMIDE 40 MG INJ IV SCH (05:30)
[2017-02-16 06:48] LABS: ADD SCAN DIFF NO
[2017-02-16 07:01] LABS: BASOPHILS % 0.4 % (0.0-2.0); EOSINOPHILS # 0.1 10^3/ul (0.0-0.5); EOSINOPHILS % 1.8 % (0.0-7.0); HEMATOCRIT 49.1 % (42.0-52.0); HEMOGLOBIN 16.1 g/dl (14.0-18.0); LYMPHOCYTES # 1.9 10^3/ul (0.8-2.9); LYMPHOCYTES % 26.9 % (15.0-51.0); MEAN CORPUSCULAR HEMOGLOBIN 30.6 pg (29.0-33.0); MEAN CORPUSCULAR HGB CONC 32.8 g/dl (32.0-37.0); MEAN CORPUSCULAR VOLUME 93.2 fl (82.0-101.0); MEAN PLATELET VOLUME 12.4 fl (7.4-10.4); MONOCYTE # 0.7 10^3/ul (0.3-0.9); NEUTROPHIL # 4.3 10^3/ul (1.6-7.5); NEUTROPHILS % 60.3 % (39.0-77.0); PLATELET COUNT 166 10^3/UL (140-415); RED BLOOD COUNT 5.27 10^6/ul (4.70-6.10); RED CELL DISTRIBUTION WIDTH 12.5 % (11.5-14.5); WHITE BLOOD COUNT 7.1 10^3/ul (4.8-10.8)
[2017-02-16 08:03] LABS: CALCIUM 9.3 mg/dl (8.4-10.2); CREATININE 0.57 mg/dl (0.61-1.24)
[2017-02-16] MEDS: LISINOPRIL 5 MG TAB PO SCH (08:42)
[2017-02-16] MEDS: MAGNESIUM OXIDE 400 MG TAB PO SCH ×2 (08:42→20:48)
[2017-02-16] MEDS: DOXYCYCLINE 100 MG in SOD CHLORIDE 0.9% 250 ML IVPB SCH (08:44)
[2017-02-16] MEDS: INSULIN ASPART [NOVOLOG] 3 ML PEN SC SCH ×7 (08:46→21:07)
[2017-02-16] MEDS ORDERED: MAGNESIUM SULFATE 4 GM/100 ML 100 ML IVPB SCH (12:00)
--- NOTE | 2017-02-16 13:29 | CONS ---
Date/Time of Note Date/Time of Note DATE: 02/16/17 TIME: 13:25 Assessment/Plan Assessment/Plan Additional Assessment/Plan Likely pneumonia Acute decompensated diastolic congestive heart failure Atrial fibrillation with rapid ventricular rates, improved, not on anticoagulation secondary to history of GI bleed Preserved ejection fraction Sepsis Hypertension Small pericardial effusion -Heart rate trend improved, would switch Cardizem to long-acting regimen. Continue diuretics as blood pressure and renal function permits and plan to switch to p.o tomorrow. Maintain potassium above 4.0 and magnesium above 2.0. Consultation Date/Type/Reason Admit Date/Time Feb 14, 2017 at 22:57 Initial Consult Date Type of Consultation: cv 24 HR Interval Summary Free Text/Dictation Patient feeling better, less shortness of breath. Still with lower examinee edema. Denies palpitations Exam/Review of Systems Vital Signs Vitals Vital Signs Date Time Temp Pulse Resp B/P Pulse Ox O2 Delivery O2 Flow Rate FiO2 02/16/17 12:00 105 02/16/17 11:06 98.2 19 124/58 94 02/16/17 08:00 Nasal Cannula 5.0 Intake and Output 02/15/17 02/15/17 02/16/17 15:00 23:00 07:00 Intake Total 1100 ml 350 ml Output Total 2200 ml 3125 ml Balance -1100 ml -2775 ml Exam No apparent distress, sitting up and eating lunch Constitutional: alert, oriented Head: normocephalic Neck: supple Respiratory: other (Coarse breath sounds bilaterally, no wheezing) Cardiovascular: irregular rhythm, other (S1-S2 heard) Gastrointestinal: bowel sounds, distended, non-tender, soft Extremities: edema Results Result Diagram: 02/16/17 0620 02/16/17 0620 Results 24 hrs Laboratory Tests Test 02/15/17 18:10 02/15/17 21:15 02/16/17 02:22 02/16/17 06:20 Bedside Glucose 244 H 270 H 292 H White Blood Count 7.1 Red Blood Count 5.27 Hemoglobin 16.1 Hematocrit 49.1 Mean Corpuscular Volume 93.2 Mean Corpuscular Hemoglobin 30.6 Mean Corpuscular Hemoglobin Concent 32.8 Red Cell Distribution Width 12.5 Platelet Count 166 Mean Platelet Volume 12.4 H Neutrophils % 60.3 Lymphocytes % 26.9 Monocytes % 10.0 Eosinophils % 1.8 Basophils % 0.4 Nucleated Red Blood Cells % 0.0 Neutrophils # 4.3 Lymphocytes # 1.9 Monocytes # 0.7 Eosinophils # 0.1 Basophils # 0.0 Nucleated Red Blood Cells # 0.0 Sodium Level 143 Potassium Level 4.0 Chloride Level 97 Carbon Dioxide Level 31 Anion Gap 19 H Blood Urea Nitrogen 19 Creatinine 0.57 L Glucose Level 311 H Hemoglobin A1c Calcium Level 9.3 Phosphorus Level 4.4 Magnesium Level 1.6 L Test 02/16/17 07:52 02/16/17 11:16 02/16/17 11:56 Bedside Glucose 265 H 376 H Lab Scanned Report REFERENCE LAB Medications Medications Current Medications Ondansetron HCl (Zofran Inj) 4 mg Q6H PRN IV NAUSEA AND/OR VOMITING; Start 02/15 at 01:00 Nitroglycerin (Nitroglycerin (Sl Tab) 0.4 Mg) 1 tab Q5M PRN SL CHEST PAIN; Start 02/15/17 at 01:00 Acetaminophen (Tylenol Tab) 650 mg Q6H PRN PO PAIN LEVEL 1-3 OR FEVER; Start at 01:00 Docusate Sodium (Colace) 100 mg Q12H PRN PO CONSTIPATION; Start 02/15/17 at 01: 00 Bisacodyl (Dulcolax) 5 mg DAILY PRN PO CONSTIPATION; Start 02/15/17 at 01:00 Pantoprazole (Protonix Iv) 40 mg DAILY@06 IV Last administered on 02/16/17 05: 25; Admin Dose 40 MG; Start 02/15/17 at 06:00 Furosemide (Lasix) 40 mg DAILY@06 IV Last administered on 02/16/17 05:30; Admin Dose 40 MG; Start 02/15/17 at 06:00 Lisinopril 5 mg 5 mg DAILY PO Last administered on 02/16/17 08:42; Admin Dose 5 MG; Start 02/15/17 at 09:00 Ceftriaxone Sodium 50 ml @ 100 mls/hr Q24H IVPB Last administered on 02/16/17 02:24; Admin Dose 100 MLS/HR; Start 02/15/17 at 02:00 Doxycycline Hyclate/Sodium Chloride (Vibramycin/NS) 250 ml @ 250 mls/hr Q12 IVPB Last administered on 02/16/17 08:44; Admin Dose 250 MLS/HR; Start 02/15/17 at 01:00 Diagnostic Test (Pha) (Accu-Chek) 1 ea 02 XX Last administered on 02/16/17 02: 24; Admin Dose 1 EA; Start 02/16/17 at 02:00 Miscellaneous Information 1 ea NOTE XX ; Start 02/15/17 at 03:00 Glucose (Glutose) 15 gm Q15M PRN PO DECREASED GLUCOSE; Start 02/15/17 at 03:00 Glucose (Glutose) 22.5 gm Q15M PRN PO DECREASED GLUCOSE; Start 02/15/17 at 03:00 Dextrose (D50w Syringe) 25 ml Q15M PRN IV DECREASED GLUCOSE; Start 02/15/17 at 03:00 Dextrose (D50w Syringe) 50 ml Q15M PRN IV DECREASED GLUCOSE; Start 02/15/17 at 03:00 Glucagon (Glucagen) 1 mg Q15M PRN IM DECREASED GLUCOSE; Start 02/15/17 at 03:00 Glucose (Glutose) 15 gm Q15M PRN BUCCAL DECREASED GLUCOSE; Start 02/15/17 at 03: 00 Morphine Sulfate (morphine) 2 mg Q3H PRN IV PAIN Last administered on 02/15/17 23:41; Admin Dose 2 MG; Start 02/15/17 at 10:30 Diltiazem HCl (Cardizem) 60 mg Q6 PO Last administered on 02/16/17 12:19; Admin Dose 60 MG; Start 02/15/17 at 18:00 Insulin Glargine (Lantus) 35 unit DAILY@20 SC Last administered on 02/15/17 21: 22; Admin Dose 35 UNIT; Start 02/15/17 at 20:00 Magnesium Oxide 400 mg 400 mg BID PO Last administered on 02/16/17 08:42; Admin Dose 400 MG; Start 02/15/17 at 21:00 Magnesium Sulfate (Magnesium Sulfate 4 Gm/100 ml) 100 ml @ 25 mls/hr ONCE IVPB Last administered on 02/16/17 12:19; Admin Dose 25 MLS/HR; Start 02/16/17 at 12 :00; Stop 02/16/17 at 15:59 J Carlos Bonner DO Feb 16, 2017 13:29
[2017-02-16] MEDS ORDERED: FUROSEMIDE 40 MG INJ IV ONE (16:00)
--- NOTE | 2017-02-16 19:20 | PN ---
Date/Time of Note Date/Time of Note DATE: 02/16/17 TIME: 19:11 Assessment/Plan VTE Prophylaxis VTE Prophylaxis Intervention: SCD's Lines/Catheters IV Catheter Type (from Nrs): Saline Lock Assessment/Plan Chief Complaint/Hosp Course #1 chest pain likely secondary to A. fib with RVR and/or pneumonia ACS ruled out Cardiology consultation appreciate #2 A. 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 #5 Hypertension-controlled Continue JERRELL inhibitor #6 Lower extremity edema with an elevated BNP 2D echo shows a normal EF and chest x-ray does not show any vascular congestion Lower extremity edema likely secondary to obesity with lymphedema DVT and GI prophylaxis: SCDs, Protonix Problems: Subjective 24 Hr Interval Summary Constitutional: no complaints Exam/Review of Systems Vital Signs Vitals Vital Signs Date Time Temp Pulse Resp B/P Pulse Ox O2 Delivery O2 Flow Rate FiO2 02/16/17 16:00 127 02/16/17 15:13 98.2 19 117/82 94 02/16/17 08:00 Nasal Cannula 5.0 Intake and Output 02/15/17 02/15/17 02/16/17 15:00 23:00 07:00 Intake Total 1100 ml 350 ml Output Total 2200 ml 3125 ml Balance -1100 ml -2775 ml Exam Constitutional: alert Respiratory: clear to auscultation Cardiovascular: regular rate and rhythm Gastrointestinal: distended, non-tender, soft Musculoskeletal: nl extremities to inspection Results Result Diagram: 02/16/17 0620 02/16/17 0620 Results 24 hrs Laboratory Tests Test 02/15/17 21:15 02/16/17 02:22 02/16/17 06:20 02/16/17 07:52 Bedside Glucose 270 H 292 H 265 H White Blood Count 7.1 Red Blood Count 5.27 Hemoglobin 16.1 Hematocrit 49.1 Mean Corpuscular Volume 93.2 Mean Corpuscular Hemoglobin 30.6 Mean Corpuscular Hemoglobin Concent 32.8 Red Cell Distribution Width 12.5 Platelet Count 166 Mean Platelet Volume 12.4 H Neutrophils % 60.3 Lymphocytes % 26.9 Monocytes % 10.0 Eosinophils % 1.8 Basophils % 0.4 Nucleated Red Blood Cells % 0.0 Neutrophils # 4.3 Lymphocytes # 1.9 Monocytes # 0.7 Eosinophils # 0.1 Basophils # 0.0 Nucleated Red Blood Cells # 0.0 Sodium Level 143 Potassium Level 4.0 Chloride Level 97 Carbon Dioxide Level 31 Anion Gap 19 H Blood Urea Nitrogen 19 Creatinine 0.57 L Glucose Level 311 H Hemoglobin A1c Calcium Level 9.3 Phosphorus Level 4.4 Magnesium Level 1.6 L Test 02/16/17 11:16 02/16/17 11:56 02/16/17 17:04 Lab Scanned Report REFERENCE LAB Bedside Glucose 376 H 297 H Medications Medications Current Medications Ondansetron HCl (Zofran Inj) 4 mg Q6H PRN IV NAUSEA AND/OR VOMITING; Start 02/15 at 01:00 Nitroglycerin (Nitroglycerin (Sl Tab) 0.4 Mg) 1 tab Q5M PRN SL CHEST PAIN; Start 02/15/17 at 01:00 Acetaminophen (Tylenol Tab) 650 mg Q6H PRN PO PAIN LEVEL 1-3 OR FEVER; Start at 01:00 Docusate Sodium (Colace) 100 mg Q12H PRN PO CONSTIPATION; Start 02/15/17 at 01: 00 Bisacodyl (Dulcolax) 5 mg DAILY PRN PO CONSTIPATION; Start 02/15/17 at 01:00 Lisinopril 5 mg 5 mg DAILY PO Last administered on 02/16/17 08:42; Admin Dose 5 MG; Start 02/15/17 at 09:00 Ceftriaxone Sodium 50 ml @ 100 mls/hr Q24H IVPB Last administered on 02/16/17 02:24; Admin Dose 100 MLS/HR; Start 02/15/17 at 02:00 Doxycycline Hyclate/Sodium Chloride (Vibramycin/NS) 250 ml @ 250 mls/hr Q12 IVPB Last administered on 02/16/17 08:44; Admin Dose 250 MLS/HR; Start 02/15/17 at 01:00 Diagnostic Test (Pha) (Accu-Chek) 1 ea 02 XX Last administered on 02/16/17 02: 24; Admin Dose 1 EA; Start 02/16/17 at 02:00 Miscellaneous Information 1 ea NOTE XX ; Start 02/15/17 at 03:00 Glucose (Glutose) 15 gm Q15M PRN PO DECREASED GLUCOSE; Start 02/15/17 at 03:00 Glucose (Glutose) 22.5 gm Q15M PRN PO DECREASED GLUCOSE; Start 02/15/17 at 03:00 Dextrose (D50w Syringe) 25 ml Q15M PRN IV DECREASED GLUCOSE; Start 02/15/17 at 03:00 Dextrose (D50w Syringe) 50 ml Q15M PRN IV DECREASED GLUCOSE; Start 02/15/17 at 03:00 Glucagon (Glucagen) 1 mg Q15M PRN IM DECREASED GLUCOSE; Start 02/15/17 at 03:00 Glucose (Glutose) 15 gm Q15M PRN BUCCAL DECREASED GLUCOSE; Start 02/15/17 at 03: 00 Morphine Sulfate (morphine) 2 mg Q3H PRN IV PAIN Last administered on 02/15/17 23:41; Admin Dose 2 MG; Start 02/15/17 at 10:30 Insulin Glargine (Lantus) 35 unit DAILY@20 SC Last administered on 02/15/17 21: 22; Admin Dose 35 UNIT; Start 02/15/17 at 20:00 Magnesium Oxide (Mag-Ox 400) 400 mg BID PO Last administered on 02/16/17 08:42 ; Admin Dose 400 MG; Start 02/15/17 at 21:00 Pantoprazole (Protonix Tab) 40 mg DAILY@06 PO ; Start 02/17/17 at 06:00 MARIO NOONAN Feb 16, 2017 19:19
[2017-02-16] MEDS ORDERED: INSULIN GLARGINE [LANtus] 3 ML PEN SC SCH (20:00)
[2017-02-16] MEDS ORDERED: AZITHROMYCIN 500MG/NS (PMX) 250 ML IVPB SCH (20:30)
[2017-02-17] VITALS (10 sets, daily range): BP systolic 128–157; BP diastolic 58–76; PULSE 100–160; RESP 19–20
[2017-02-17] MEDS: ACCU-CHEK XX SCH (02:17)
[2017-02-17] MEDS ORDERED: FUROSEMIDE 40 MG TAB PO SCH (06:00)
[2017-02-17] MEDS ORDERED: LEVOFLOXACIN 750 MG TABLET PO SCH (06:00)
[2017-02-17] MEDS ORDERED: PANTOPRAZOLE (EC) 40 MG TAB PO SCH (06:00)
[2017-02-17 06:09] LABS: ADD SCAN DIFF NO
[2017-02-17 06:37] LABS: BASOPHILS % 0.2 % (0.0-2.0); EOSINOPHILS # 0.3 10^3/ul (0.0-0.5); EOSINOPHILS % 3.2 % (0.0-7.0); HEMATOCRIT 51.6 % (42.0-52.0); HEMOGLOBIN 16.6 g/dl (14.0-18.0); LYMPHOCYTES % 34.7 % (15.0-51.0); MEAN CORPUSCULAR HEMOGLOBIN 30.3 pg (29.0-33.0); MEAN CORPUSCULAR HGB CONC 32.2 g/dl (32.0-37.0); MEAN CORPUSCULAR VOLUME 94.2 fl (82.0-101.0); MEAN PLATELET VOLUME 12.7 fl (7.4-10.4); MONOCYTE # 0.7 10^3/ul (0.3-0.9); MONOCYTES % 7.4 % (0.0-11.0); NEUTROPHIL # 4.7 10^3/ul (1.6-7.5); NEUTROPHILS % 53.8 % (39.0-77.0); PLATELET COUNT 179 10^3/UL (140-415); RED BLOOD COUNT 5.48 10^6/ul (4.70-6.10); RED CELL DISTRIBUTION WIDTH 12.7 % (11.5-14.5); WHITE BLOOD COUNT 8.8 10^3/ul (4.8-10.8)
[2017-02-17 06:46] LABS: CALCIUM 8.7 mg/dl (8.4-10.2); CREATININE 0.64 mg/dl (0.61-1.24); POTASSIUM 3.8 mmol/L (3.5-5.1)
[2017-02-17] MEDS: MAGNESIUM OXIDE 400 MG TAB PO SCH (08:14)
[2017-02-17] MEDS: LISINOPRIL 5 MG TAB PO SCH (08:15)
[2017-02-17] MEDS: INSULIN ASPART [NOVOLOG] 3 ML PEN SC SCH ×4 (08:35→12:21)
[2017-02-17] MEDS ORDERED: POTASSIUM CHLORIDE (SR) 20 MEQ TAB PO STA (08:50)
[2017-02-17] MEDS ORDERED: MAGNESIUM SULFATE 2 GM/50 ML 50 ML IVPB ONE (09:00)
[2017-02-17] MEDS ORDERED: DILTIAZEM (CD) 180 MG CAP PO SCH (09:00)
[2017-02-17] MEDS ORDERED: DIGOXIN 500 MCG INJ IV ONE ×2 (12:00→18:00)
[2017-02-17] MEDS ORDERED: DILTIAZEM 60 MG TAB PO PRN (12:00)
--- NOTE | 2017-02-17 12:03 | CONS ---
Date/Time of Note Date/Time of Note DATE: 02/17/17 TIME: 12:02 Assessment/Plan Assessment/Plan Additional Assessment/Plan Likely pneumonia Acute decompensated diastolic congestive heart failure Atrial fibrillation with rapid ventricular rates, not on anticoagulation secondary to history of GI bleed Preserved ejection fraction Sepsis Hypertension Small pericardial effusion -Patient still with episodes of rapid ventricular rates. Would order additional short acting p.o. Cardizem as needed and load with IV digoxin. Supplement potassium to maintain above 4.0 and magnesium above 2.0. Will start low-dose Aldactone and continue as renal function and blood pressure permits. Consultation Date/Type/Reason Admit Date/Time Feb 14, 2017 at 22:57 Type of Consultation: cv 24 HR Interval Summary Free Text/Dictation Patient denies palpitations, shortness of breath or dizziness Exam/Review of Systems Vital Signs Vitals Vital Signs Date Time Temp Pulse Resp B/P Pulse Ox O2 Delivery O2 Flow Rate FiO2 02/17/17 12:00 125 02/17/17 11:01 98.2 19 131/58 93 02/17/17 08:30 Nasal Cannula 2.0 Intake and Output 02/16/17 02/16/17 02/17/17 15:00 23:00 07:00 Intake Total 800 ml 300 ml Output Total 1000 ml 1500 ml 1350 ml Balance -1000 ml -700 ml -1050 ml Exam No apparent distress, no dyspnea with speaking Constitutional: alert, obese, oriented Head: normocephalic Respiratory: other (Coarse breath sounds bilaterally, no wheezing) Cardiovascular: irregular rhythm, other (S1-S2 heard) Gastrointestinal: bowel sounds, distended, non-tender, soft Extremities: edema Results Result Diagram: 02/17/17 0540 02/17/17 0540 Results 24 hrs Laboratory Tests Test 02/16/17 17:04 02/16/17 20:59 02/17/17 02:10 02/17/17 05:40 Bedside Glucose 297 H 219 197 White Blood Count 8.8 # Red Blood Count 5.48 Hemoglobin 16.6 Hematocrit 51.6 Mean Corpuscular Volume 94.2 Mean Corpuscular Hemoglobin 30.3 Mean Corpuscular Hemoglobin Concent 32.2 Red Cell Distribution Width 12.7 Platelet Count 179 Mean Platelet Volume 12.7 H Neutrophils % 53.8 Lymphocytes % 34.7 Monocytes % 7.4 Eosinophils % 3.2 Basophils % 0.2 Nucleated Red Blood Cells % 0.0 Neutrophils # 4.7 Lymphocytes # 3.0 H Monocytes # 0.7 Eosinophils # 0.3 Basophils # 0.0 Nucleated Red Blood Cells # 0.0 Sodium Level 138 Potassium Level 3.8 Chloride Level 92 L Carbon Dioxide Level 36 H Anion Gap 14 Blood Urea Nitrogen 19 Creatinine 0.64 Glucose Level 193 # Calcium Level 8.7 Magnesium Level 1.9 Test 02/17/17 08:30 Bedside Glucose 180 Medications Medications Current Medications Ondansetron HCl (Zofran Inj) 4 mg Q6H PRN IV NAUSEA AND/OR VOMITING; Start 02/15 at 01:00 Nitroglycerin (Nitroglycerin (Sl Tab) 0.4 Mg) 1 tab Q5M PRN SL CHEST PAIN; Start 02/15/17 at 01:00 Acetaminophen (Tylenol Tab) 650 mg Q6H PRN PO PAIN LEVEL 1-3 OR FEVER; Start at 01:00 Docusate Sodium (Colace) 100 mg Q12H PRN PO CONSTIPATION Last administered on 05:19; Admin Dose 100 MG; Start 02/15/17 at 01:00 Bisacodyl (Dulcolax) 5 mg DAILY PRN PO CONSTIPATION Last administered on 05:19; Admin Dose 5 MG; Start 02/15/17 at 01:00 Lisinopril (Zestril) 5 mg DAILY PO Last administered on 02/17/17 08:15; Admin Dose 5 MG; Start 02/15/17 at 09:00 Diagnostic Test (Pha) (Accu-Chek) 1 ea 02 XX Last administered on 02/17/17 02: 17; Admin Dose 1 EA; Start 02/16/17 at 02:00 Miscellaneous Information 1 ea NOTE XX ; Start 02/15/17 at 03:00 Glucose (Glutose) 15 gm Q15M PRN PO DECREASED GLUCOSE; Start 02/15/17 at 03:00 Glucose (Glutose) 22.5 gm Q15M PRN PO DECREASED GLUCOSE; Start 02/15/17 at 03:00 Dextrose (D50w Syringe) 25 ml Q15M PRN IV DECREASED GLUCOSE; Start 02/15/17 at 03:00 Dextrose (D50w Syringe) 50 ml Q15M PRN IV DECREASED GLUCOSE; Start 02/15/17 at 03:00 Glucagon (Glucagen) 1 mg Q15M PRN IM DECREASED GLUCOSE; Start 02/15/17 at 03:00 Glucose (Glutose) 15 gm Q15M PRN BUCCAL DECREASED GLUCOSE; Start 02/15/17 at 03: 00 Morphine Sulfate (morphine) 2 mg Q3H PRN IV PAIN Last administered on 02/15/17 23:41; Admin Dose 2 MG; Start 02/15/17 at 10:30 Magnesium Oxide (Mag-Ox 400) 400 mg BID PO Last administered on 02/17/17 08:14 ; Admin Dose 400 MG; Start 02/15/17 at 21:00 Pantoprazole (Protonix Tab) 40 mg DAILY@06 PO Last administered on 02/17/17 05: 19; Admin Dose 40 MG; Start 02/17/17 at 06:00 Insulin Glargine (Lantus) 40 unit DAILY@20 SC Last administered on 02/16/17 21: 08; Admin Dose 40 UNIT; Start 02/16/17 at 20:00 Levofloxacin (Levaquin) 750 mg DAILY@06 PO Last administered on 02/17/17 05:19 ; Admin Dose 750 MG; Start 02/17/17 at 06:00 Diltiazem HCl (Cardizem Cd) 180 mg BID PO Last administered on 02/17/17 09:24; Admin Dose 180 MG; Start 02/17/17 at 09:00 Diltiazem HCl (Cardizem) 60 mg Q6 PRN PO hr>110; Start 02/17/17 at 12:00; Status UNV Digoxin (Digoxin) 250 mcg ONCE ONCE IV ; Start 02/17/17 at 12:00; Stop 02/17/17 at 12:01; Status UNV Digoxin (Digoxin) 250 mcg NOW ONCE IV ; Start 02/17/17 at 18:00; Stop 02/17/17 at 18:01; Status UNV Digoxin (Digoxin) 0.125 mg DAILY@13 PO ; Start 02/18/17 at 13:00; Status UNV J Carlos Bonner DO Feb 17, 2017 12:03
--- NOTE | 2017-02-17 14:40 | DS ---
Date/Time of Note Date/Time of Note DATE: 02/17/17 TIME: 14:33 Discharge Summary Admission/Discharge Info Admit Date/Time Feb 14, 2017 at 22:57 Discharge Date/Time Feb 17, 2017 at 14:05 Discharge Diagnosis Leaving AMA #1 chest pain likely secondary to A. fib with RVR and/or pneumonia ACS ruled out Cardiology consultation appreciated #2 A. fib with RVR: Heart rate still elevated on Cardizem p.o. but patient leaving AMA Anticoagulation held in the past secondary to history of GI bleed #3 Pneumonia #4 Diabetes-uncontrolled A1c undetectable Patient leaving AMA public health educator spoke with the patient #5 Hypertension-controlled in-house #6 Lower extremity edema with an elevated BNP 2D echo shows a normal EF and chest x-ray does not show any vascular congestion Lower extremity edema likely secondary to obesity with lymphedema, patient advised about lifestyle changes Patient Condition: Fair Hospital Course Patient is a 56-year-old male with a history of uncontrolled diabetes, alcohol abuse and obesity. Patient presents with chest pain probably secondary to palpitations from his A. fib with RVR. Patient also diagnosed with pneumonia and was started on antibiotics. Patient was started on diltiazem drip and eventually transitioned to diltiazem p.o. but heart rate was still elevated. Patient's diabetes was really uncontrolled as A1c was undetectable and sugars were severely elevated. Patient did speak to informatics educator and was started on subcu insulin sugars were controlled in house. Patient had a liver ultrasound showed fatty liver CT abdomen showed large ventral hernia. Patient heart rate was still elevated on the day of discharge the patient wanted to leave AMA he understood the risk. Follow-up Plan No follow-up instructions given to the patient as patient left AMA Primary Care Provider Care Physician No Primary Time spent on discharge: < 30 minutes Pending Labs Laboratory Tests Test 02/16/17 17:04 02/16/17 20:59 02/17/17 02:10 02/17/17 05:40 Bedside Glucose 297mg/dL (70-220) 219mg/dL (70-220) 197mg/dL (70-220) White Blood Count 8.810^3/ul (4.8-10.8) Red Blood Count 5.4810^6/ul (4.70-6.10) Hemoglobin 16.6g/dl (14.0-18.0) Hematocrit 51.6% (42.0-52.0) Mean Corpuscular Volume 94.2fl (82.0-101.0) Mean Corpuscular Hemoglobin 30.3pg (29.0-33.0) Mean Corpuscular Hemoglobin Concent 32.2g/dl (32.0-37.0) Red Cell Distribution Width 12.7% (11.5-14.5) Platelet Count 87903^3/UL (140-415) Mean Platelet Volume 12.7fl (7.4-10.4) Neutrophils % 53.8% (39.0-77.0) Lymphocytes % 34.7% (15.0-51.0) Monocytes % 7.4% (0.0-11.0) Eosinophils % 3.2% (0.0-7.0) Basophils % 0.2% (0.0-2.0) Nucleated Red Blood Cells % 0.0/100WBC (0.0-0.0) Neutrophils # 4.710^3/ul (1.6-7.5) Lymphocytes # 3.010^3/ul (0.8-2.9) Monocytes # 0.710^3/ul (0.3-0.9) Eosinophils # 0.310^3/ul (0.0-0.5) Basophils # 0.010^3/ul (0.0-0.1) Nucleated Red Blood Cells # 0.010^3/ul (0.0-0.0) Sodium Level 138mmol/L (135-144) Potassium Level 3.8mmol/L (3.5-5.1) Chloride Level 92mmol/L (97-110) Carbon Dioxide Level 36mmol/L (21-31) Anion Gap 14 (8-16) Blood Urea Nitrogen 19mg/dl (7-20) Creatinine 0.64mg/dl (0.61-1.24) Glucose Level 193mg/dl (70-220) Calcium Level 8.7mg/dl (8.4-10.2) Magnesium Level 1.9mg/dl (1.7-2.5) Test 02/17/17 08:30 02/17/17 12:17 Bedside Glucose 180mg/dL (70-220) 172mg/dL (70-220) MARIO NOONAN Feb 17, 2017 14:40
[2017-02-17] MEDS ORDERED: SPIRONOLACTONE 25 MG TAB PO SCH (18:00)
[2017-02-18] MEDS ORDERED: DIGOXIN 0.125 MG TAB PO SCH (13:00)
== END 2017-02-17 14:05 | disposition left against medical advice (07) | DRG 193 ==
LOC: E/R 21:05 → TEL 22:57
PROVIDERS: ADMIT Family Medicine; ATTEND Family Medicine
DX: J18.9 Pneumonia, unspecified organism (principal); I50.33 Acute on chronic diastolic (congestive) heart failure; I31.3 Pericardial effusion (noninflammatory); E11.65 Type 2 diabetes mellitus with hyperglycemia; I48.91 Unspecified atrial fibrillation; E78.5 Hyperlipidemia, unspecified; I11.0 Hypertensive heart disease with heart failure; E66.9 Obesity, unspecified; Z68.39 Body mass index [BMI] 39.0-39.9, adult; I89.0 Lymphedema, not elsewhere classified; F10.10 Alcohol abuse, uncomplicated
CPT/HCPCS: 36415; 71010; 71275; 74176; 76705; 80048; 80053; 80061; 81003; 82550; 82553; 82962; 83036; 83605; 83735; 83880; 84100; 84443; 84484; 85025; 85610; 85730; 87040; 87086; 93005; 93306; 96374; 96375; C9113; J0456; J1815; J1940; J2270; J3475; J7050; Q9967

== ENCOUNTER 2018-11-11 01:39 | Inpatient (IN) | payer MEDICAID ==
[2018-11-11] VITALS (7 sets, daily range): BP systolic 131–167; BP diastolic 90–105; PULSE 60–132; RESP 20–22; Ht 175.3 cm; Wt 155.7 kg
[~2018-11-11] VITALS: Ht 175.3 cm; Wt 155.7 kg
[2018-11-11] MEDS ORDERED: METOPROLOL 5 MG INJ IV SCH (02:00)
--- NOTE | 2018-11-11 04:45 | ERD ---
ER Documentation Chief Complaint Chief Complaint bib ra from home for cp, given 162 asa, 2 sprays nitro on route, hx of afib HPI This is a 57-year-old male with a prior history of atrial fibrillation, history of obesity, who presents for evaluation of chest pain. She presented with atrial fibrillation with rapid ventricular response, in the field he was given aspirin, as well as 2 sublingual sprays of nitro, his chest pain improved significantly. Additionally has a history of diabetes. He denies recent alcohol use, he is currently on Xarelto. ROS All systems reviewed and are negative except as per history of present illness. Allergies Allergies: Coded Allergies: No Known Allergy (Unverified , 02/14/17) PMhx/Soc History of Surgery: Yes Anesthesia Reaction: No Hx Neurological Disorder: No Hx Respiratory Disorders: Yes Hx Cardiac Disorders: Yes Hx Psychiatric Problems: No Hx Miscellaneous Medical Probl: No Hx Alcohol Use: No Hx Substance Use: No Hx Tobacco Use: No Smoking Status: Never smoker Physical Exam Vitals Vital Signs Date Temp Pulse Resp B/P (MAP) Pulse Ox O2 O2 Flow FiO2 Time Delivery Rate 11/11/18 72 28 171/109 95 Nasal 2.0 04:02 (129) Cannula 11/11/18 98.7 120 20 128/98 100 Room Air 02:45 (108) 11/11/18 Nasal 01:48 Cannula 11/11/18 98.7 141 20 148/89 100 01:42 (108) Physical Exam Const: Alert, awake, nontoxic Head: Atraumatic Eyes: Normal Conjunctiva ENT: Normal External Ears, Nose and Mouth. Neck: Full range of motion. No meningismus. Resp: Clear to auscultation bilaterally Cardio: Irregularly irregular, no murmurs Abd: Soft, non tender, obese, no rebound or guarding non distended. Normal bowel sounds Skin: No petechiae or rashes Back: No midline or flank tenderness Ext: No cyanosis, or edema Neur: Awake and alert Psych: Normal Mood and Affect Result Diagram: 11/11/18 0235 11/11/185 Results 24 hrs Laboratory Tests Test 11/11/18 02:35 11/11/18 04:38 White Blood Count 8.6 10^3/ul Red Blood Count 4.17 10^6/ul Hemoglobin 12.8 g/dl Hematocrit 39.8 % Mean Corpuscular Volume 95.4 fl Mean Corpuscular Hemoglobin 30.7 pg Mean Corpuscular Hemoglobin Concent 32.2 g/dl Red Cell Distribution Width 14.2 % Platelet Count 129 10^3/UL Mean Platelet Volume 13.7 fl Immature Granulocytes % 0.600 % Neutrophils % 63.5 % Lymphocytes % 25.2 % Monocytes % 8.2 % Eosinophils % 1.9 % Basophils % 0.6 % Nucleated Red Blood Cells % 0.0 /100WBC Immature Granulocytes # 0.050 10^3/ul Neutrophils # 5.5 10^3/ul Lymphocytes # 2.2 10^3/ul Monocytes # 0.7 10^3/ul Eosinophils # 0.2 10^3/ul Basophils # 0.1 10^3/ul Nucleated Red Blood Cells # 0.0 10^3/ul Prothrombin Time 15.2 Sec Prothrombin Time Ratio 1.2 INR International Normalized Ratio 1.19 Urine Color STRAW Urine Clarity CLEAR Urine pH 5.0 Urine Specific [place] 1.023 Urine Ketones NEGATIVE mg/dL Urine Nitrite NEGATIVE mg/dL Urine Bilirubin NEGATIVE mg/dL Urine Urobilinogen 1+ mg/dL Urine Leukocyte Esterase NEGATIVE Bill/ul Urine Hemoglobin NEGATIVE mg/dL Urine Glucose 3+ mg/dL Urine Total Protein NEGATIVE mg/dl Sodium Level 136 mmol/L Potassium Level 4.4 mmol/L Chloride Level 102 mmol/L Carbon Dioxide Level 24 mmol/L Anion Gap 10 Blood Urea Nitrogen 23 mg/dl Creatinine 0.87 mg/dl Est Glomerular Filtrat Rate mL/min > 60 mL/min Glucose Level 496 mg/dl Calcium Level 9.0 mg/dl Troponin I < 0.012 ng/ml B-Type Natriuretic Peptide 1500 PG/ML Bedside Glucose 378 mg/dL Current Medications Medications Dose Sig/Steven Start Time Status Last (Trade) Ordered Route PRN Stop Time Admin Dose Reason Admin Metoprolol 5 mg Q5M IV 11/11/18 DC 11/11/18 Tartrate 02:00 02:53 (Lopressor) 11/11/18 02:11 Insulin 10 unit ONCE ONCE 11/11/18 11/11/18 Human SC 05:00 04:35 Regular 11/11/18 05:01 (Humulin R) Procedures/MDM This is a 57-year-old male with a prior history of atrial fibrillation, diabetes, who presents for evaluation of chest pain in the setting of atrial fibrillation with rapid ventricular response. The patient was given IV metoprolol, as he is on oral metoprolol at home, this resulted in good rate control, his EKG showed no evidence of ischemia, and his troponin was negative. He was noted to have hyperglycemia with a blood sugar in the 400s, however he had no evidence of DKA, he is given subcutaneous insulin in the ED. Patient remained hemodynamically stable, he will be admitted for further work-up of his chest pain, as well as blood sugar control. He is currently on anticoagulation with Xarelto. Accepting Care Team: Current data and ongoing care discussed. Primary: Randy Consulting: none Outstanding Data: none EKG: Rate/Rhythm: Atrial fibrillation with a rapid ventricular response QRS, ST, T-waves: No changes consistent w/ acute ischemia Impression: No evidence of ischemia. Atrial fibrillation Departure Diagnosis: Primary Impression: Chest pain Chest pain type: unspecified Qualified Codes: R07.9 - Chest pain, unspecified Additional Impression: Hyperglycemia Condition: Stable FRANK BARDALES MD Nov 11, 2018 04:45
[2018-11-11] MEDS ORDERED: INSULIN REGULAR, HUMAN 100 UNIT/1 ML 3ML VIAL SC ONE (05:00)
[2018-11-11] MEDS ORDERED: ACETAMINOPHEN 325 MG TAB PO PRN (05:30)
[2018-11-11] MEDS ORDERED: NITROGLYCERIN (SL) 0.4 MG TAB SL PRN (05:30)
[2018-11-11] MEDS ORDERED: ONDANSETRON 4 MG INJ IV PRN (05:30)
[2018-11-11] MEDS ORDERED: NACL 0.9% 3 ML SYG IV SCH (05:30)
[2018-11-11] MEDS ORDERED: METO100T11 PO (05:45)
[2018-11-11] MEDS ORDERED: RIVA20TA5 PO (05:45)
[2018-11-11] MEDS ORDERED: FURO40SO PO (05:45)
[2018-11-11] MEDS ORDERED: ATOR-2 PO (05:45)
[2018-11-11] MEDS ORDERED: LISI-471 PO (05:45)
[2018-11-11] MEDS ORDERED: ASPI-817 PO (05:45)
[2018-11-11] MEDS ORDERED: PANT40TA3 PO (05:45)
[2018-11-11] MEDS ORDERED: MAGN200T PO (05:45)
[2018-11-11] MEDS ORDERED: SPIR25TA PO (05:45)
[2018-11-11] MEDS ORDERED: HYDR-3671 PO (05:45)
[2018-11-11] MEDS ORDERED: METF100010 PO (05:45)
[2018-11-11] MEDS: DILTIAZEM-D5W 125MG/125ML DRIP 125 ML IV SCH ×5 (05:59→15:39)
[2018-11-11] MEDS ORDERED: GLUCOSE GEL 15 GRAM TUBE BUCCAL PRN (06:30)
[2018-11-11] MEDS ORDERED: GLUCOSE GEL 15 GRAM TUBE PO PRN ×2 (06:30)
[2018-11-11] MEDS ORDERED: DEXTROSE 50% 50 ML SYRINGE IV PRN ×2 (06:30)
[2018-11-11] MEDS ORDERED: SOD CHLORIDE 0.9% 500 ML IV ONE (06:30)
[2018-11-11] MEDS ORDERED: GLUCAGON 1 MG INJ IM PRN (06:30)
[2018-11-11] MEDS ORDERED: INSULIN GLARGINE [LANTus] (100 UNITS/ML) SYG SC SCH (08:00)
[2018-11-11] MEDS: INSULIN ASPART [NOVOLOG] 3 ML PEN SC SCH ×6 (08:07→17:14)
--- NOTE | 2018-11-11 08:31 | HP ---
Date/Time of Note Date/Time of Note DATE: 11/11/18 TIME: 08:23 Assessment/Plan VTE Prophylaxis Pharmacological prophylaxis: rivaroxaban Lines/Catheters IV [facility] [place] [facility] Urinary Cath still in place: No Assessment/Plan Assessment/Plan 1. Atrial fibrillation with RVR -will place on Cardizem drip. Patient was initially controlled on the metoprolol in the ER -Patient on Xarelto at home 2. Chest pain: Rule out ACS -Follow-up with serial troponin and 2D echo -Cardiology consult 3. Hypertension: Currently BP on the lower side. Monitor closely given patient is on Cardizem drip 4. History of AAA surgery: No acute issue Result Diagram: 11/11/1823411/11/18234 Results 24hrs Laboratory Tests Test 11/11/18 02:35 11/11/18 04:38 11/11/18 05:36 11/11/18 08:02 White Blood Count 8.6 Red Blood Count 4.17 #L Hemoglobin 12.8 #L Hematocrit 39.8 #L Mean Corpuscular 95.4 Volume Mean Corpuscular 30.7 Hemoglobin Mean Corpuscular 32.2 Hemoglobin Concent Red Cell 14.2 Distribution Width Platelet Count 129 #L Mean Platelet Volume 13.7 H Immature 0.600 H Granulocytes % Neutrophils % 63.5 Lymphocytes % 25.2 Monocytes % 8.2 Eosinophils % 1.9 Basophils % 0.6 Nucleated Red Blood 0.0 Cells % Immature 0.050 H Granulocytes # Neutrophils # 5.5 Lymphocytes # 2.2 Monocytes # 0.7 Eosinophils # 0.2 Basophils # 0.1 Nucleated Red Blood 0.0 Cells # Prothrombin Time 15.2 H Prothrombin Time 1.2 Ratio INR International 1.19 Normalized Ratio Urine Color STRAW Urine Clarity CLEAR Urine pH 5.0 Urine Specific 1.023 [place] Urine Ketones NEGATIVE Urine Nitrite NEGATIVE Urine Bilirubin NEGATIVE Urine Urobilinogen 1+ H Urine Leukocyte NEGATIVE Esterase Urine Hemoglobin NEGATIVE Urine Glucose 3+ H Urine Total Protein NEGATIVE Sodium Level 136 Potassium Level 4.4 Chloride Level 102 Carbon Dioxide Level 24 Anion Gap 10 Blood Urea Nitrogen 23 H Creatinine 0.87 Est Glomerular > 60 Filtrat Rate mL/min Glucose Level 496 *H Calcium Level 9.0 Troponin I < 0.012 0.021 B-Type Natriuretic 1500 H Peptide Bedside Glucose 378 H 276 H Creatine Kinase 127 Creatine Kinase 1.6 Index Creatinine Kinase MB 2.03 (Mass) HPI/ROS Admit Date/Time Admit Date/Time Nov 11, 2018 at 03:59 Hx of Present Illness This is a 57-year-old male with a history of hypertension, atrial fibrillation, abdominal surgery for AAA who presented to ER complaining of chest pain and palpitation. Symptoms been going on for 1 day. When he presented to the ER he was found to be in rapid A-fib. He was given metoprolol and initially rate was controlled, but shortly after rates became rapid again. EKG and first troponin negative PMH/Family/Social Past Medical History Medical History: other (See HPI) Medications Current Medications IV Flush (NS 3 ml) 3 ml PER PROTOCOL IV ; Start 11/11/18 at 05:30 Ondansetron HCl (Zofran Inj) 4 mg Q6H PRN IV NAUSEA/VOMITING; Start 11/11/18 at 05:30 Aspirin (Aspirin) 81 mg DAILY PO ; Start 11/11/18 at 09:00 Nitroglycerin (Nitroglycerin (Sl Tab) 0.4 Mg) 1 tab Q5M PRN SL .CHEST PAIN; Start 11/11/18 at 05:30 Acetaminophen (Tylenol Tab) 650 mg Q6H PRN PO .PAIN 1-3 OR TEMP; Start 11/11/18 at 05:30 Diltiazem HCl 125 ml @ 5 mls/hr TITRATE IV Last administered on 11/11/18at 07:08; Admin Dose 10 MLS/HR; Start 11/11/18 at 06:00 Diagnostic Test (Pha) (Accu-Chek) 1 ea 02 XX ; Start 11/12/18 at 02:00 Insulin Glargine (Lantus) 23 units DAILY@0800 SC ; Start 11/11/18 at 08:00 Insulin Aspart (Novolog Insulin Pen) 6 unit WITH MEALS SC Last administered on 11/11/18at 08:07; Admin Dose 6 UNIT; Start 11/11/18 at 07:55 Insulin Aspart (Novolog Insulin Pen) NOVOLOG *MODERATE* ALGORITHM WITH MEALS BEDTIME SC Last administered on 11/11/18at 08:07; Admin Dose 8 UNIT; Start 11/11/18 at 07:55 Rivaroxaban (Xarelto) 20 mg WITH DINNER PO ; Start 11/11/18 at 17:55 Miscellaneous Information 1 ea NOTE XX ; Start 11/11/18 at 06:30 Glucose (Glutose) 15 gm Q15M PRN PO DECREASED GLUCOSE; Start 11/11/18 at 06:30 Glucose (Glutose) 22.5 gm Q15M PRN PO DECREASED GLUCOSE; Start 11/11/18 at 06:30 Dextrose (D50w Syringe) 25 ml Q15M PRN IV DECREASED GLUCOSE; Start 11/11/18 at 06:30 Dextrose (D50w Syringe) 50 ml Q15M PRN IV DECREASED GLUCOSE; Start 11/11/18 at 06:30 Glucagon (Glucagen) 1 mg Q15M PRN IM DECREASED GLUCOSE; Start 11/11/18 at 06:30 Glucose (Glutose) 15 gm Q15M PRN BUCCAL DECREASED GLUCOSE; Start 11/11/18 at 06:30 Coded Allergies: No Known Allergy (Unverified , 02/14/17) Past Surgical History Past Surgical Hx: other (See HPI) Family History Significant Family History: no pertinent family hx Social History Alcohol Use: other Smoking Status: Unknown if ever smoked Drug Use: none Exam/Review of Systems Vital Signs Vitals Vital Signs Date Temp Pulse Resp B/P (MAP) Pulse Ox O2 O2 Flow FiO2 Time Delivery Rate 11/11/18 97.7 95 20 137/96 96 07:12 (110) 11/11/18 Nasal 2.0 05:28 Cannula Intake and Output 11/10/18 11/10/18 11/11/18 1515:00 23:00 07:00 IntakeIntake Total 500 ml OutputOutput Total 1000 ml BalanceBalance -500 ml Exam Constitutional: other (No acute distress) Head: normocephalic, atraumatic Eyes: EOMI, PERRL Respiratory: clear to auscultation, normal air movement Cardiovascular: irregular rhythm Gastrointestinal: soft Extremities: normal pulses JOHNSON CINTRON MD Nov 11, 2018 08:31
[2018-11-11] MEDS ORDERED: ASPIRIN 81 MG TAB PO SCH (09:00)
--- NOTE | 2018-11-11 16:44 | CONS ---
DATE OF ADMISSION: 11/11/2018 DATE OF CONSULTATION: 11/11/2018 TYPE OF CONSULTATION: Interventional cardiology consultation (on behalf of Dr. Bonner). REASON FOR CONSULTATION: Chest pain and atrial fibrillation with rapid ventricular response. CHIEF COMPLAINT: Chest pain, palpitations. HISTORY OF PRESENT ILLNESS: Thank you for this referral. History was from the patient who is a fair historian at best, from extensive review of the old chart. This is a 57-year-old gentleman with history of hypertension, diabetes, atrial fibrillation, AAA status post repair, who came to [facility] room for above complaint. The patient says since yesterday, he has had on and off chest pain anteriorly and could not describe it well. He was noted to be in atrial fibrillation with rapid vent ricular response. He has been placed on Cardizem drip and the heart rate is currently better control led. No chest pain or pressure now. Troponin has been so far negative. Denies any active bleeding to me. PAST MEDICAL HISTORY: History of atrial fibrillation documented 2 years ago at 2017 when he was seen by Dr. Bonner. At that time, he was not anticoagulated due to Dr. Bonner's report history of GI ble ed; however, the patient currently is on Xarelto. History of abdominal surgery for apparently AAA re pair per H and P note, history of diabetes, hypertension, dyslipidemia, obesity. MEDICATIONS: As per medication reconciliation, which were personally reviewed. SOCIAL HISTORY: The patient does not smoke at this point. FAMILY HISTORY: No history reported coronary artery disease. ALLERGIES: NO KNOWN DRUG ALLERGIES. REVIEW OF SYSTEMS: As above-mentioned. PHYSICAL EXAMINATION: VITAL SIGNS: Temperature 97.6, heart of 82, blood pressure 138/90, respiratory rate of 20 and sattin g 94%. GENERAL Obese gentleman. HEENT: Normocephalic, atraumatic. Pupils are equal and round. CARDIOVASCULAR: Irregularly irregular, systolic murmur. PULMONARY: Anteriorly with no wheezes or rhonchi. GASTROINTESTINAL: Obese, soft, nontender. EXTREMITIES: Trivial edema. NEUROLOGIC: Awake, follows commands. PSYCHIATRIC: Appears to be calm and pleasant. LABORATORY DATA: Troponin has been negative x2. Sodium 132, potassium 4.4, BUN of 23, creatinine 0. 87, glucose of 496. BNP of 1500. WBC of 8.6, hemoglobin 12.8, platelets 129. DIAGNOSTIC DATA: Chest x-ray done in the emergency room shows cardiomegaly, mild venous hypertension . EKG done shows atrial fibrillation with RVR, right bundle branch block. Echocardiogram done in and read by Dr. Bonner showed ejection fraction about 55%. ASSESSMENT AND PLAN: 1. Chest pain, rule acute coronary syndrome. 2. Atrial fibrillation with rapid ventricular response. 3. Diabetes. 4. Hypertension. 5. Morbid obesity, rule out obstructive sleep apnea. 6. Anemia. 7. Peripheral vascular disease with abdominal aortic aneurysm repair. RECOMMENDATIONS: I will restart the patient back on p.o. metoprolol. Titrate off of the Cardizem as tolerated. Xarelto will be continued for now as long as no bleeding is noted. I will hold the aspi rin though since he is on full dose Xarelto. Given his recurrent chest pain, I will schedule him for Lexiscan stress test tomorrow. Echocardiogram has been ordered to be done. Respiratory care will b e managed. Thank you for this referral. We will continue to follow along with you until Dr. Bonner returns on Monday. Dictated By: DOMENIC JUAN MD AV/NTS Conf#: [id number] DID#: [id number] CC: JOHNSON CINTRON MD; MARIO NOONAN MD;*[facility]*
[2018-11-11] MEDS ORDERED: RIVAROXABAN 20 MG TABLET PO SCH (17:55)
--- NOTE | 2018-11-11 18:42 | PN ---
Date/Time of Note Date/Time of Note DATE: 11/11/18 TIME: 18:39 Assessment/Plan VTE Prophylaxis Risk score (from Ns)>0 risk: 5 SCD applied (from Ns): Yes Pharmacological prophylaxis: rivaroxaban Lines/Catheters IV Catheter Type (from [facility]): Saline Lock Urinary Cath still in place: No Assessment/Plan Hospital Course 1. Atrial fibrillation with RVR -Cardiology consultation appreciated, restarted metoprolol and will try to wean off Cardizem -Continue home Xarelto 2. Chest pain: Rule out ACS -Troponins are normal -Cardiology consult appreciated, stress test tomorrow 3. Hypertension: Currently BP on the lower side. Monitor closely given patient is on Cardizem drip 4. Abdominal distention -Patient with significant abdominal distention but he states is relatively acute over the past several days, patient denies any history of liver disease or alcohol abuse -Follow-up on ultrasound of the abdomen to evaluate for cirrhosis and ascites 5. History of AAA surgery: No acute issue 6. Diabetes -Sugars are currently elevated, increase basal and mealtime insulin -Follow-up on A1c Prophylaxis: Xarelto DC planning: Follow-up on ultrasound of the abdomen and stress test, anticipate DC to home in 1-2 days Result Diagram: 11/11/185 11/11/18 0235 Results 24hrs Laboratory Tests Test 11/11/18 02:35 11/11/18 04:38 11/11/18 05:36 11/11/18 08:02 White Blood Count 8.6 Red Blood Count 4.17 #L Hemoglobin 12.8 #L Hematocrit 39.8 #L Mean Corpuscular 95.4 Volume Mean Corpuscular 30.7 Hemoglobin Mean Corpuscular 32.2 Hemoglobin Concent Red Cell 14.2 Distribution Width Platelet Count 129 #L Mean Platelet Volume 13.7 H Immature 0.600 H Granulocytes % Neutrophils % 63.5 Lymphocytes % 25.2 Monocytes % 8.2 Eosinophils % 1.9 Basophils % 0.6 Nucleated Red Blood 0.0 Cells % Immature 0.050 H Granulocytes # Neutrophils # 5.5 Lymphocytes # 2.2 Monocytes # 0.7 Eosinophils # 0.2 Basophils # 0.1 Nucleated Red Blood 0.0 Cells # Prothrombin Time 15.2 H Prothrombin Time 1.2 Ratio INR International 1.19 Normalized Ratio Urine Color STRAW Urine Clarity CLEAR Urine pH 5.0 Urine Specific 1.023 Mckenzie Urine Ketones NEGATIVE Urine Nitrite NEGATIVE Urine Bilirubin NEGATIVE Urine Urobilinogen 1+ H Urine Leukocyte NEGATIVE Esterase Urine Hemoglobin NEGATIVE Urine Glucose 3+ H Urine Total Protein NEGATIVE Sodium Level 136 Potassium Level 4.4 Chloride Level 102 Carbon Dioxide Level 24 Anion Gap 10 Blood Urea Nitrogen 23 H Creatinine 0.87 Est Glomerular > 60 Filtrat Rate mL/min Glucose Level 496 *H Calcium Level 9.0 Troponin I < 0.012 0.021 B-Type Natriuretic 1500 H Peptide Bedside Glucose 378 H 276 H Creatine Kinase 127 Creatine Kinase 1.6 Index Creatinine Kinase MB 2.03 (Mass) Test 11/11/18 09:02 11/11/18 11:13 11/11/18 11:38 11/11/18 17:10 Bedside Glucose 331 H 220 244 H Creatine Kinase 119 Creatine Kinase 1.6 Index Creatinine Kinase MB 1.96 (Mass) Troponin I < 0.012 Subjective 24 Hr Interval Summary Cardiovascular: chest pain Gastrointestinal: pain Exam/Review of Systems Exam Vitals Vital Signs Date Temp Pulse Resp B/P (MAP) Pulse Ox O2 O2 Flow FiO2 Time Delivery Rate 11/11/18 97.4 85 20 131/97 92 Room Air 16:03 (108) 11/11/18 2.0 09:12 Intake and Output 11/10/18 11/10/18 11/11/18 1515:00 23:00 07:00 IntakeIntake Total 500 ml OutputOutput Total 1000 ml BalanceBalance -500 ml Constitutional: alert, oriented Respiratory: clear to auscultation Cardiovascular: irregular rhythm Gastrointestinal: soft, distended Musculoskeletal: nl extremities to inspection Results Results 24hrs Laboratory Tests Test 11/11/18 02:35 11/11/18 04:38 11/11/18 05:36 11/11/18 08:02 White Blood Count 8.6 Red Blood Count 4.17 #L Hemoglobin 12.8 #L Hematocrit 39.8 #L Mean Corpuscular 95.4 Volume Mean Corpuscular 30.7 Hemoglobin Mean Corpuscular 32.2 Hemoglobin Concent Red Cell 14.2 Distribution Width Platelet Count 129 #L Mean Platelet Volume 13.7 H Immature 0.600 H Granulocytes % Neutrophils % 63.5 Lymphocytes % 25.2 Monocytes % 8.2 Eosinophils % 1.9 Basophils % 0.6 Nucleated Red Blood 0.0 Cells % Immature 0.050 H Granulocytes # Neutrophils # 5.5 Lymphocytes # 2.2 Monocytes # 0.7 Eosinophils # 0.2 Basophils # 0.1 Nucleated Red Blood 0.0 Cells # Prothrombin Time 15.2 H Prothrombin Time 1.2 Ratio INR International 1.19 Normalized Ratio Urine Color STRAW Urine Clarity CLEAR Urine pH 5.0 Urine Specific 1.023 Mckenzie Urine Ketones NEGATIVE Urine Nitrite NEGATIVE Urine Bilirubin NEGATIVE Urine Urobilinogen 1+ H Urine Leukocyte NEGATIVE Esterase Urine Hemoglobin NEGATIVE Urine Glucose 3+ H Urine Total Protein NEGATIVE Sodium Level 136 Potassium Level 4.4 Chloride Level 102 Carbon Dioxide Level 24 Anion Gap 10 Blood Urea Nitrogen 23 H Creatinine 0.87 Est Glomerular > 60 Filtrat Rate mL/min Glucose Level 496 *H Calcium Level 9.0 Troponin I < 0.012 0.021 B-Type Natriuretic 1500 H Peptide Bedside Glucose 378 H 276 H Creatine Kinase 127 Creatine Kinase 1.6 Index Creatinine Kinase MB 2.03 (Mass) Test 11/11/18 09:02 11/11/18 11:13 11/11/18 11:38 11/11/18 17:10 Bedside Glucose 331 H 220 244 H Creatine Kinase 119 Creatine Kinase 1.6 Index Creatinine Kinase MB 1.96 (Mass) Troponin I < 0.012 Medications Medication Current Medications IV Flush (NS 3 ml) 3 ml PER PROTOCOL IV ; Start 11/11/18 at 05:30 Ondansetron HCl (Zofran Inj) 4 mg Q6H PRN IV NAUSEA/VOMITING; Start 11/11/18 at 05:30 Aspirin (Aspirin) 81 mg DAILY PO Last administered on 11/11/18at 09:03; Admin Dose 81 MG; Start 11/11/18 at 09:00 Nitroglycerin (Nitroglycerin (Sl Tab) 0.4 Mg) 1 tab Q5M PRN SL .CHEST PAIN; Start 11/11/18 at 05:30 Acetaminophen (Tylenol Tab) 650 mg Q6H PRN PO .PAIN 1-3 OR TEMP Last administered on 11/11/18at 11:40; Admin Dose 650 MG; Start 11/11/18 at 05:30 Diltiazem HCl 125 ml @ 5 mls/hr TITRATE IV Last administered on 11/11/18at 15:39; Admin Dose 10 MLS/HR; Start 11/11/18 at 06:00 Diagnostic Test (Pha) (Accu-Chek) 1 ea 02 XX ; Start 11/12/18 at 02:00 Insulin Glargine (Lantus) 23 units DAILY@0800 SC Last administered on 11/11/18at 09:06; Admin Dose 23 UNITS; Start 11/11/18 at 08:00 Insulin Aspart (Novolog Insulin Pen) 6 unit WITH MEALS SC Last administered on 11/11/18at 17:14; Admin Dose 6 UNIT; Start 11/11/18 at 07:55 Insulin Aspart (Novolog Insulin Pen) NOVOLOG *MODERATE* ALGORITHM WITH MEALS BEDTIME SC Last administered on 11/11/18at 17:14; Admin Dose 6 UNIT; Start 11/11/18 at 07:55 Rivaroxaban (Xarelto) 20 mg WITH DINNER PO Last administered on 11/11/18at 17:11; Admin Dose 20 MG; Start 11/11/18 at 17:55 Miscellaneous Information 1 ea NOTE XX ; Start 11/11/18 at 06:30 Glucose (Glutose) 15 gm Q15M PRN PO DECREASED GLUCOSE; Start 11/11/18 at 06:30 Glucose (Glutose) 22.5 gm Q15M PRN PO DECREASED GLUCOSE; Start 11/11/18 at 06:30 Dextrose (D50w Syringe) 25 ml Q15M PRN IV DECREASED GLUCOSE; Start 11/11/18 at 06:30 Dextrose (D50w Syringe) 50 ml Q15M PRN IV DECREASED GLUCOSE; Start 11/11/18 at 06:30 Glucagon (Glucagen) 1 mg Q15M PRN IM DECREASED GLUCOSE; Start 11/11/18 at 06:30 Glucose (Glutose) 15 gm Q15M PRN BUCCAL DECREASED GLUCOSE; Start 11/11/18 at 06:30 Metoprolol Succinate (Toprol Xl) 100 mg BID PO ; Start 11/11/18 at 21:00 MARIO NOONAN Nov 11, 2018 18:42
[2018-11-11] MEDS ORDERED: METOPROLOL (XL) 100 MG TAB PO SCH (21:00)
[2018-11-12] MEDS ORDERED: ACCU-CHEK XX SCH (02:00)
[2018-11-12] MEDS ORDERED: INSULIN ASPART [NOVOLOG] 3 ML PEN SC SCH (07:55)
[2018-11-12] MEDS ORDERED: INSULIN GLARGINE [LANTus] (100 UNITS/ML) SYG SC SCH (08:00)
== END 2018-11-11 20:45 | disposition left against medical advice (07) | DRG 309 ==
LOC: E/R 01:39 → TEL 03:59
PROVIDERS: ADMIT Internal Medicine; ATTEND Internal Medicine
PROC: 3E0F7GC Introduction of Other Therapeutic Substance into Respiratory Tract, Via Natural or Artificial Opening (ICD-10-PCS; principal; 2018-11-11)
DX: I48.2 Chronic atrial fibrillation (principal); Z68.43 Body mass index [BMI] 50.0-59.9, adult; E11.65 Type 2 diabetes mellitus with hyperglycemia; I10 Essential (primary) hypertension; E66.01 Morbid (severe) obesity due to excess calories; D64.9 Anemia, unspecified; I73.9 Peripheral vascular disease, unspecified; R14.0 Abdominal distension (gaseous)
CPT/HCPCS: 36415; 71045; 80048; 81003; 82550; 82553; 82962; 83880; 84484; 85025; 85610; 93005; 96374; J1815; J7040